=== PATIENT | female | born 1990 | race Hispanic/Latino ===

== ENCOUNTER 2018-07-19 18:16 | Emergency (ER) | payer OTHER ==
[2018-07-19 20:11] LABS: Urine Blood NEGATIVE (NEG); Urine Glucose NEGATIVE (NEG); Urine Protein NEGATIVE (NEG); Urine pH 5.5 (5.0-7.0)
[2018-07-19 20:23] LABS: Urine Bacteria 20-50 /HPF (<20); Urine Culture Reflex Order REFLEXED; Urine RBC NONE SEEN /HPF (NONE SEEN)
--- NOTE | 2018-07-19 20:25 | EDPHYS ---
Physician Documentation [facility] Name: Belinda Restrepo Age: 27 yrs Sex: Female : 1990 Arrival Date: 07/19/2018 Time: 18:19 Bed 13 Private MD: ED Physician Supa Deras HPI: 07/19 19:34 This 27 yrs old Female presents to ER via Ambulatory with complaints of Abdominal Pain, kb Vaginal Discharge. 19:34 The patient presents with pelvic pain, vaginal discharge, that is green discharge. kb Onset: The symptoms/episode began/occurred 4 day(s) ago. Modifying factors: The symptoms are alleviated by nothing, the symptoms are aggravated by nothing. Associated signs and symptoms: Pertinent positives: vaginal discharge, Pertinent negatives: constipation, cramping, diarrhea, dyspareunia, dysuria, fever, hematuria, nausea, urinary frequency, vaginal bleeding, vomiting. Severity of symptoms: At their worst the symptoms were moderate, in the emergency department the symptoms are unchanged. The patient is sexually active, reportedly has a single partner, does not use protection during intercourse. The patient's method of control includes nothing. The patient has not experienced similar symptoms in the past. The patient has not recently seen a physician. Pt reports vaginal discharge that started 4 days ago. States it started off white and turned a light green. Called [facility] and had a prescription called in because she is from out of town. STarted Flagyl and symptoms have gotten worse. States discharge is heavier and more green. [facility] [employer]: 18:29 LMP 06/13/2018 aj Historical: - Allergies: 18:29 No Known Allergies; aj - Immunization history:: Adult Immunizations up to date. - Social history:: Smoking status: Patient/guardian denies using tobacco. - Ebola Screening: : No symptoms or risks identified at this time. ROS: 19:11 Constitutional: Negative for fever, chills, and weight loss, Cardiovascular: Negative kb for chest pain, palpitations, and edema, Respiratory: Negative for shortness of breath, cough, wheezing, and pleuritic chest pain, Back: Negative for injury and pain, MS/Extremity: Negative for injury and deformity, Skin: Negative for injury, rash, and discoloration, Neuro: Negative for headache, weakness, numbness, tingling, and seizure. 19:11 : Positive for pelvic pain, vaginal discharge. Exam: 19:15 Constitutional: This is a well developed, well nourished patient who is awake, alert, kb and in no acute distress. Head/Face: Normocephalic, atraumatic. ENT: Nares patent. No nasal discharge, no septal abnormalities noted. Tympanic membranes are normal and external auditory canals are clear. Oropharynx with no redness, swelling, or masses, exudates, or evidence of obstruction, uvula midline. Mucous membranes moist. Neck: Trachea midline, no thyromegaly or masses palpated, and no cervical lymphadenopathy. Supple, full range of motion without nuchal rigidity, or vertebral point tenderness. No Meningismus. Chest/axilla: Normal chest wall appearance and motion. Nontender with no deformity. No lesions are appreciated. Cardiovascular: Regular rate and rhythm with a normal S1 and S2. No gallops, murmurs, or rubs. Normal PMI, no JVD. No pulse deficits. Respiratory: Lungs have equal breath sounds bilaterally, clear to auscultation and percussion. No rales, rhonchi or wheezes noted. No increased work of breathing, no retractions or nasal flaring. 20:01 : Pelvic Exam: External exam: is normal, Speculum exam: no bleeding is noted, no kb cervicitis, os that is closed, no tissue in cervix is seen, bimanual exam reveals normal findings, no cervical motion tenderness, os that is closed, discharge, green, thick, the nurse was present for the exam. Vital Signs: 18:29 BP 138 / 88; Pulse 94; Resp 18; Temp 97.9; Pulse Ox 100% on R/A; Weight 79.38 kg; aj Height 5 ft. 5 in. (165.10 cm); 19:45 BP 102 / 75; Pulse 89; Resp 18; Temp 97.8; Pulse Ox 99% ; ea 20:40 BP 110 / 65; Pulse 80; Resp 18; Temp 98; Pulse Ox 98% ; ea 18:29 Body Mass Index 29.12 (79.38 kg, 165.10 cm) aj MDM: 18:33 Patient medically screened. kb 19:11 Data reviewed: vital signs, nurses notes. Data interpreted: Pulse oximetry: on room air kb is 100 %. Interpretation: normal. 20:23 Counseling: I had a detailed discussion with the patient and/or guardian regarding: the kb historical points, exam findings, and any diagnostic results supporting the discharge/admit diagnosis, lab results, the need for outpatient follow up, a family practitioner, to return to the emergency department if symptoms worsen or persist or if there are any questions or concerns that arise at home. 07/19 19:04 Order name: Urine Microscopic Only 07/19 19:04 Order name: Wet Prep; Complete Time: 20:22 kb 07/19 19:04 Order name: GC (GONORR/CHLAMYDIA) Probe 07/19 19:05 Order name: Urine Microscopic Only; Complete Time: 20:23 EDMS 07/19 19:37 Order name: Urine Dipstick--Ancillary (enter results); Complete Time: 20:15 mw2 07/19 19:37 Order name: Urine --Ancillary (enter results); Complete Time: 20:15 mw2 07/19 19:04 Order name: Urine Test (obtain specimen); Complete Time: 19:20 kb 07/19 19:04 Order name: Urine Dipstick-Ancillary (obtain specimen); Complete Time: 19:20 kb 07/19 20:25 Order name: Urine Culture EDWV Administered Medications: 20:35 Drug: Rocephin (cefTRIAXone) 250 mg Route: IM; Site: left gluteus; ea 20:50 Follow up: Response: No adverse reaction ea 20:37 Drug: DiFLUcan 150 mg Route: PO; ea 20:50 Follow up: Response: No adverse reaction ea 20:37 Drug: Zithromax 1 grams Route: PO; ea 20:50 Follow up: Response: No adverse reaction ea Disposition: 07/19/18 20:24 Discharged to Home. Impression: Urinary tract infection, site not specified, Candidiasis of vulva and vagina. - Condition is Stable. - Discharge Instructions: Vaginal Yeast Infection, Adult, Urinary Tract Infection, Adult, [id number]. - Prescriptions for Macrobid 100 mg Oral Capsule - take 1 capsule by ORAL route every 12 hours for 7 days; 14 capsule. - Medication Reconciliation Form, Thank You Letter, Antibiotic Education, Prescription Opioid Use form. - Follow up: Emergency Department; When: As needed; Reason: Worsening of condition. Follow up: Private Physician; When: 2 - 3 days; Reason: Recheck today's complaints, Continuance of care, Re-evaluation by your physician. Addendum: 07/26/2018 12:39 Co-signature as Attending Physician, Supa Deras MD I agree with the assessment and c caballero plan of care. Signatures: Dispatcher [employer] EDDoretha Gannon, E BUSINESS SPECIALIST-C E BUSINESS SPECIALIST-Luz Maria Grossman, RN Supa Johnson MD MD cha Antunez, Elena RN WILLIAM grande Corrections: (The following items were deleted from the chart) 07/19 20:52 20:24 07/19/2018 20:24 Discharged to Home. Impression: Urinary tract infection, site ea not specified; Candidiasis of vulva and vagina. Condition is Stable. Forms are Medication Reconciliation Form, Thank You Letter, Antibiotic Education, Prescription Opioid Use. Follow up: Emergency Department; When: As needed; Reason: Worsening of condition. Follow up: Private Physician; When: 2 - 3 days; Reason: Recheck today's complaints, Continuance of care, Re-evaluation by your physician. kb
--- NOTE | 2018-07-19 20:25 | ER ---
Nurse's Notes [facility] Name: Belinda Restrepo Age: 27 yrs Sex: Female : 1990 Arrival Date: 07/19/2018 Time: 18:19 Bed 13 Private MD: Diagnosis: Urinary tract infection, site not specified;Candidiasis of vulva and vagina Presentation: 07/19 18:27 Presenting complaint: Patient states: Report green thick discharge and pelvic pain. aj Transition of care: patient was not received from another setting of care. Onset of symptoms was July 16, 2018. Care prior to arrival: None. 18:27 Method Of Arrival: Ambulatory aj 18:27 Acuity: JULIO 3 aj 19:26 Risk Assessment: Do you want to hurt yourself or someone else? Patient reports no ea desire to harm self or others. Initial Sepsis Screen: Does the patient meet any 2 criteria? No. Patient's initial sepsis screen is negative. Does the patient have a suspected source of infection? No. Patient's initial sepsis screen is negative. Triage Assessment: 18:29 General: Appears in no apparent distress. comfortable, Behavior is calm, cooperative, aj appropriate for age. Pain: Complains of pain in pelvis. Neuro: Level of Consciousness is awake, alert, obeys commands, Oriented to person, place, time, situation, Appropriate for age. Respiratory: Airway is patent Respiratory effort is even, unlabored, Respiratory pattern is regular, symmetrical. GI: No signs and/or symptoms were reported involving the gastrointestinal system. : Reports discharge, green, vaginal itching. 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 - Social history:: Smoking status: Patient/guardian denies using tobacco. - Ebola Screening: : No symptoms or risks identified at this time. Screenin:27 Abuse screen: Denies threats or abuse. Nutritional screening: No deficits noted. ea Tuberculosis screening: No symptoms or risk factors identified. Fall Risk None identified. Assessment: 19:26 General: Appears in no apparent distress. Behavior is calm, cooperative, appropriate ea for age. Pain: Complains of pain in pelvis. Neuro: Level of Consciousness is awake, alert, obeys commands, Oriented to person, place, time, situation. Cardiovascular: Patient's skin is warm and dry. Respiratory: Airway is patent Respiratory effort is even, unlabored, Respiratory pattern is regular, symmetrical. GI: Bowel sounds present X 4 quads. Abd is soft and non tender X 4 quads. GI:. : Reports vaginal itching. Derm: Skin is pink, warm \T\ dry. 20:49 Reassessment: Patient and/or family updated on plan of care and expected duration. Pain ea level reassessed. Patient is alert, oriented x 3, equal unlabored respirations, skin warm/dry/pink. Discharge instruction given to patient, verbalized the understanding of instruction. No s/s of pain or discomfort noted at this time. Vital Signs: 18:29 BP 138 / 88; Pulse 94; Resp 18; Temp 97.9; Pulse Ox 100% on R/A; Weight 79.38 kg; aj Height 5 ft. 5 in. (165.10 cm); 19:45 BP 102 / 75; Pulse 89; Resp 18; Temp 97.8; Pulse Ox 99% ; ea 20:40 BP 110 / 65; Pulse 80; Resp 18; Temp 98; Pulse Ox 98% ; ea 18:29 Body Mass Index 29.12 (79.38 kg, 165.10 cm) aj ED Course: 18:19 Patient arrived in ED. tw3 18:28 Triage completed. aj 18:29 Arm band placed on left wrist. Patient placed in waiting room. aj 18:33 [facility]C [facility] kb 18:33 Supa Deras MD is Attending Physician. kb 19:20 Kerri Perales RN is Primary Nurse. ea 19:28 Patient has correct armband on for positive identification. Placed in gown. Bed in low ea position. Call light in reach. Side rails up X 1. 20:00 Assist provider with pelvic exam: Set up pelvic tray. Performed by Doretha RYAN Specimens sent to lab. Patient tolerated well. 20:52 Patient did not have IV access during this emergency room visit. ea Administered Medications: 20:35 Drug: Rocephin (cefTRIAXone) 250 mg Route: IM; Site: left gluteus; ea 20:50 Follow up: Response: No adverse reaction ea 20:37 Drug: DiFLUcan 150 mg Route: PO; ea 20:50 Follow up: Response: No adverse reaction ea 20:37 Drug: Zithromax 1 grams Route: PO; ea 20:50 Follow up: Response: No adverse reaction ea Outcome: 20:24 Discharge ordered by . maria esther 20:51 Discharged to home ambulatory. ea 20:51 Condition: improved 20:51 Discharge instructions given to patient, Instructed on discharge instructions, follow up and referral plans. medication usage, Demonstrated understanding of instructions, follow-up care, medications, Prescriptions given X 1. 20:52 Patient left the ED. ea Addendum: 07/22/2018 14:38 Addendum: Culture Results: Positive urine culture. Bacteria is resistant to, has s s intermediate sensitivity, or is not tested against prescribed antibiotics. Report given to BRANDIE for further evaluation and then to sewing pattern layout technician for follow up with patient. Phone call Attempt #1 no answer left Certified letter sent to listed address for patient. Signatures: Doretha Martinez, DIRECTOR CUSTOM-C DIRECTOR CUSTOM-Ckb Luz Maria Hicks, RN Marychuy Mao RN RN ss Wade, Tia 3 Kerri Perales RN RN ea
[2018-07-19] MEDS ORDERED: AZITHROMYCIN 250 MG TAB ONE (20:44)
[2018-07-19] MEDS ORDERED: FLUCONAZOLE 100 MG TAB ONE (20:44)
[2018-07-19] MEDS ORDERED: CEFTRIAXONE 250 MG/VIAL ONE (20:44)
[2018-07-23 23:01] LABS: C.trachomatis RNA,TMA Not Detected (Not Detected)
== END 2018-07-19 20:52 | disposition home or self-care (01) ==
LOC: ER 18:16
DX: N39.0 Urinary tract infection, site not specified (principal); B37.3 Candidiasis of vulva and vagina
CPT/HCPCS: 81003; 81015; 81025; 87077; 87086; 87088; 87186; 87210; 87490; 87590; 96372; 99284; J0696

== ENCOUNTER 2018-11-14 22:47 | Emergency (ER) | payer OTHER, SELFPAY ==
[2018-11-15] MEDS ORDERED: KETOROLAC 30 MG/ML INJ ONE (00:14)
--- NOTE | 2018-11-15 00:26 | ER ---
Nurse's Notes [facility] Name: Belinda Restrepo Age: 27 yrs Sex: Female : 1990 Arrival Date: 11/14/2018 Time: 22:49 Bed 18 Private MD: Diagnosis: Zoster [herpes zoster] Presentation: 11/14 23:30 Presenting complaint: Patient states: Rash to right lateral side of abdomen for about a lp1 week and a half; "It itches a lot and it bernal really bad, I had to leave work because I was so uncomfortable". 23:30 Method Of Arrival: Ambulatory lp1 23:30 Transition of care: patient was not received from another setting of care. Onset of lp1 symptoms was November 14, 2018. Risk Assessment: Do you want to hurt yourself or someone else? Patient reports no desire to harm self or others. Initial Sepsis Screen: Does the patient meet any 2 criteria? No. Patient's initial sepsis screen is negative. Does the patient have a suspected source of infection? No. Patient's initial sepsis screen is negative. Care prior to arrival: None. 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 - Social history:: Smoking status: Patient/guardian denies using tobacco. - Ebola Screening: : No symptoms or risks identified at this time. Screenin:47 Abuse screen: Denies threats or abuse. Denies injuries from another. Nutritional lp1 screening: No deficits noted. Tuberculosis screening: No symptoms or risk factors identified. Fall Risk None identified. Assessment: 23:47 General: Appears in no apparent distress. Behavior is appropriate for age. Pain: lp1 Complains of pain in anterior aspect of right lateral abdomen Pain currently is 9 out of 10 on a pain scale. Quality of pain is described as burning. Neuro: No deficits noted. Cardiovascular: No deficits noted. Respiratory: No deficits noted. GI: No deficits noted. : No deficits noted. EENT: No deficits noted. Derm: Rash noted that is itchy, papular, red, raised, on anterior aspect of right lateral abdomen. Musculoskeletal: No deficits noted. Vital Signs: 23:30 BP 127 / 94; Pulse 92; Resp 16; Temp 99.1(O); Pulse Ox 97% on R/A; Weight 79.38 kg (R); lp1 Height 5 ft. 5 in. (165.10 cm); Pain 9/10; 23:30 Body Mass Index 29.12 (79.38 kg, 165.10 cm) lp1 ED Course: 22:49 Patient arrived in ED. ds1 23:43 Hayde Hernandez, RN is Primary Nurse. lp1 23:46 Triage completed. lp1 23:46 Arm band placed on. lp1 23:47 Patient has correct armband on for positive identification. lp1 23:48 Ned Sánchez MD is Attending Physician. tw4 11/15 00:21 No provider procedures requiring assistance completed. Patient did not have IV access lp1 during this emergency room visit. Administered Medications: 00:21 Drug: TORadol 60 mg Route: IM; Site: right gluteus; lp1 00:46 Follow up: Response: No adverse reaction; Pain is decreased lp1 Outcome: 00:25 Discharge ordered by . tw4 00:46 Discharged to home ambulatory. lp1 00:46 Condition: good 00:46 Discharge instructions given to patient, Instructed on discharge instructions, follow up and referral plans. medication usage, Demonstrated understanding of instructions, follow-up care, medications, Prescriptions given X 3. 00:46 Patient left the ED. lp1 Signatures: Lina Bullock ds1 Hayde Hernandez, RN RN lp1 Ned Sánchez MD MD tw4
[2018-11-15 01:45] VITALS: BP 127/94; TEMP 99.1; O2SAT 97
--- NOTE | 2018-11-16 01:01 | EDPHYS ---
Physician Documentation [facility] Name: Belinda Restrepo Age: 27 yrs Sex: Female : 1990 Arrival Date: 11/14/2018 Time: 22:49 Bed 18 Private MD: ED Physician Ned Sánchez HPI: 11/15 01:31 This 27 yrs old Female presents to ER via Ambulatory with complaints of Rash. tw4 01:31 The patient's rash thought to be caused by an unknown cause. The rash is located on the tw4 posterior aspect of right lateral abdomen, anterior aspect of right lateral abdomen and right lower quadrant. The rash can be described as vesicular. Onset: The symptoms/episode began/occurred 1 week(s) ago. Associated signs and symptoms: Pertinent negatives:. Severity of symptoms: At their worst the symptoms were moderate. The patient has not experienced similar symptoms in the past. 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 - Social history:: Smoking status: Patient/guardian denies using tobacco. - Ebola Screening: : No symptoms or risks identified at this time. ROS: 11/15 01:31 Constitutional: Negative for fever, chills, and weight loss, Eyes: Negative for injury, tw4 pain, redness, and discharge, ENT: Negative for injury, pain, and discharge, Cardiovascular: Negative for chest pain, palpitations, and edema, Respiratory: Negative for shortness of breath, cough, wheezing, and pleuritic chest pain, Abdomen/GI: Negative for abdominal pain, nausea, vomiting, diarrhea, and constipation, Back: Negative for injury and pain, MS/Extremity: Negative for injury and deformity, Neuro: Negative for headache, weakness, numbness, tingling, and seizure. Skin: Positive for rash. Exam: 01:31 Constitutional: This is a well developed, well nourished patient who is awake, alert, tw4 and in no acute distress. Head/Face: Normocephalic, atraumatic. Chest/axilla: Normal chest wall appearance and motion. Nontender with no deformity. No lesions are appreciated. Cardiovascular: Regular rate and rhythm with a normal S1 and S2. No gallops, murmurs, or rubs. Normal PMI, no JVD. No pulse deficits. Respiratory: Lungs have equal breath sounds bilaterally, clear to auscultation and percussion. No rales, rhonchi or wheezes noted. No increased work of breathing, no retractions or nasal flaring. Abdomen/GI: Soft, non-tender, with normal bowel sounds. No distension or tympany. No guarding or rebound. No evidence of tenderness throughout. MS/ Extremity: Pulses equal, no cyanosis. Neurovascular intact. Full, normal range of motion. Neuro: Awake and alert, GCS 15, oriented to person, place, time, and situation. Cranial nerves II-XII grossly intact. Motor strength 5/5 in all extremities. Sensory grossly intact. Cerebellar exam normal. Normal gait. 01:31 Skin: consistent with zoster, on the posterior aspect of right lateral abdomen, anterior aspect of right lateral abdomen and right lower quadrant. Vital Signs: 11/14 23:30 BP 127 / 94; Pulse 92; Resp 16; Temp 99.1(O); Pulse Ox 97% on R/A; Weight 79.38 kg (R); lp1 Height 5 ft. 5 in. (165.10 cm); Pain 9/10; 23:30 Body Mass Index 29.12 (79.38 kg, 165.10 cm) lp1 MDM: 23:48 Patient medically screened. tw4 Administered Medications: 11/15 00:21 Drug: TORadol 60 mg Route: IM; Site: right gluteus; lp1 00:46 Follow up: Response: No adverse reaction; Pain is decreased lp1 Disposition: 01:34 Chart complete. tw4 Disposition: 11/15/18 00:25 Discharged to Home. Impression: Zoster [herpes zoster]. - Condition is Stable. - Discharge Instructions: Shingles. - Prescriptions for Ibuprofen 800 mg Oral Tablet - take 1 tablet by ORAL route every 8 hours As needed take with food; 30 tablet. Tylenol- Codeine #3 300-30 mg Oral Tablet - take 2 tablet by ORAL route every 6 hours As needed; 6 tablet. Valtrex 1 g Oral Tablet - take 1 tablet by ORAL route every 8 hours for 1 day; 30 tablet. - Work release form, Medication Reconciliation Form, Thank You Letter, Antibiotic Education, Prescription Opioid Use form. - Follow up: Private Physician; When: Upon discharge from the Emergency Department; Reason: If symptoms return, Recheck today's complaints, Continuance of care. - Problem is new. - Symptoms have improved. Signatures: Hayde Hernandez RN RN lp1 Ned Sánchez MD MD tw4 Corrections: (The following items were deleted from the chart) 00:46 00:25 11/15/2018 00:25 Discharged to Home. Impression: Zoster [herpes zoster]. lp1 Condition is Stable. Forms are Work release form, Medication Reconciliation Form, Thank You Letter, Antibiotic Education, Prescription Opioid Use. Follow up: Private Physician; When: Upon discharge from the Emergency Department; Reason: If symptoms return, Recheck today's complaints, Continuance of care. Problem is new. Symptoms have improved. tw4
== END 2018-11-15 00:46 | disposition home or self-care (01) ==
LOC: ER 22:47
DX: B02.9 Zoster without complications (principal)
CPT/HCPCS: 96372; 99283

== ENCOUNTER 2019-01-12 14:52 | Emergency (ER) | payer SELFPAY ==
--- OUTSIDE RECORDS SUMMARY | 2019-01-12 14:55 | XMS REPORT ---
:1990 [facility] Address [address] [place] [address] Care Team Providers Name Role Phone Unavailable Unavailable Unavailable Payers Payer Name Policy Type Policy Number Effective Date Expiration Date Problems This patient has no known problems. Allergies, Adverse Reactions, Alerts Allergy Allergy Status Severity Reaction(s) Onset Inactive Treating Comments Name Type Date Date Clinician No Known DA Active U 2015-01 Allergies -24 00:00:0 0 Medications This patient has no known medications.
[2019-01-12] MEDS ORDERED: NA CHLORIDE 0.9% 500 ML ONE (15:30)
[2019-01-12 15:48] LABS: Absolute Lymphocytes (CBC) 2.3 K/uL (0.7-4.9); Basophils % 0.5 % (0-1.3); Hematocrit 41.5 % (36.0-45.0); Lymphocytes % 34.4 % (15.3-44.8); RBC Red Blood Cell Count 4.55 M/uL (3.86-4.86)
[2019-01-12 16:11] LABS: Urine Blood TRACE (NEG); Urine Glucose NEGATIVE (NEG); Urine Protein NEGATIVE (NEG); Urine Specific Gravity 1.015 (1.005-1.030)
[2019-01-12 16:18] LABS: ALT/SGPT 32 U/L (12-78); AST/SGOT 14 U/L (15-37); Alkaline Phosphatase 64 U/L (45-117); BUN Blood Urea Nitrogen 9 mg/dL (7-18); Bicarbonate 29 mmol/L (21-32); Bilirubin Total 0.8 mg/dL (0.2-1.0); Glucose Level 135 mg/dL (74-106); Potassium 3.5 mmol/L (3.5-5.1); Protein, Total 7.2 g/dL (6.4-8.2); Sodium Level 140 mmol/L (136-145); Troponin (Emerg Dept Use Only) < 0.02 ng/mL (0.0-0.045)
--- NOTE | 2019-01-12 16:50 | ER ---
Nurse's Notes [facility] Name: Belinda Restrepo Age: 28 yrs Sex: Female : 1990 Arrival Date: 01/12/2019 Time: 14:55 Bed 6 Private MD: Diagnosis: Other chest pain;Obstructive sleep apnea (adult) (pediatric);Fatigue Presentation: 01/12 15:00 Presenting complaint: Chest pressure and SOB that woke her from sleep at 0230 today. hb Also c/o nausea. Pain does not radiate. Denies cough/fever. Transition of care: patient was not received from another setting of care. Onset of symptoms was January 12, 2019 at 02:30. Risk Assessment: Do you want to hurt yourself or someone else? Patient reports no desire to harm self or others. Care prior to arrival: None. 15:00 Method Of Arrival: Ambulatory hb 15:00 Acuity: JULIO 3 hb 15:19 Initial Sepsis Screen: Does the patient meet any 2 criteria? No. Patient's initial jl7 sepsis screen is negative. Does the patient have a suspected source of infection? No. Patient's initial sepsis screen is negative. 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 - Social history:: Smoking status: Patient/guardian denies using tobacco. - Ebola Screening: : No symptoms or risks identified at this time. Screenin:11 Abuse screen: Denies threats or abuse. Denies injuries from another. Nutritional jl7 screening: No deficits noted. Tuberculosis screening: No symptoms or risk factors identified. Fall Risk IV access (20 points). Total Jett Fall Scale indicates No Risk (0-24 pts). Assessment: 15:11 General: Appears in no apparent distress. uncomfortable. Pain: Complains of pain in jl7 anterior aspect of left upper chest Pain does not radiate. Pain currently is 6 out of 10 on a pain scale. Quality of pain is described as pressure, Pain began suddenly, at 0230 this morning Is continuous. Neuro: Level of Consciousness is awake, alert, obeys commands, Oriented to person, place, time, situation. Cardiovascular: Heart tones S1 S2 present Patient's skin is warm and dry. Respiratory: Airway is patent Respiratory effort is even, unlabored, Respiratory pattern is regular, symmetrical, Breath sounds are clear bilaterally. GI: Reports nausea. : No signs and/or symptoms were reported regarding the genitourinary system. EENT: No signs and/or symptoms were reported regarding the EENT system. Derm: Skin is pink, warm \T\ dry. Musculoskeletal: No signs and/or symptoms reported regarding the musculoskeletal system. 16:15 Reassessment: Patient appears in no apparent distress at this time. No changes from jl7 previously documented assessment. Patient and/or family updated on plan of care and expected duration. Pain level reassessed. Patient is alert, oriented x 3, equal unlabored respirations, skin warm/dry/pink. Vital Signs: 15:01 BP 146 / 105; Pulse 108; Resp 16; Temp 97.7; Pulse Ox 99% on R/A; Weight 79.38 kg; hb Height 5 ft. 5 in. (165.10 cm); Pain 2/10; 15:11 BP 129 / 94; Pulse 104; Resp 16 S; Pulse Ox 98% on R/A; Pain 6/10; jl7 16:20 BP 102 / 68; Pulse 82; Resp 18; Temp 98.9(TE); Pulse Ox 100% on R/A; mh5 15:01 Body Mass Index 29.12 (79.38 kg, 165.10 cm) ED Course: 14:55 Patient arrived in ED. mr 15:01 Triage completed. hb 15:01 Arm band placed on. hb 15:04 Alejandra Lemus, WILLIAM is Primary Nurse. jl7 15:10 Eun Serrano FNP-C is PHCP. snw 15:10 Jaime Santos MD is Attending Physician. snw 15:11 Patient maintains SpO2 saturation greater than 95% on room air. jl7 15:12 Initial lab(s) drawn, by me, sent to lab. Inserted saline lock: 20 gauge in right mh5 antecubital area, using aseptic technique. Blood collected. 15:13 Patient has correct armband on for positive identification. Placed in gown. Bed in low mh5 position. Call light in reach. Side rails up X 1. Warm blanket given. hospital monitor on. Pulse ox on. NIBP on. 15:22 EKG done, by pharmacist technician. reviewed by Jaime Santos MD. 5 15:33 EKG done, by pharmacist technician. reviewed by Jaime Santos MD. at1 17:09 No provider procedures requiring assistance completed. IV discontinued, intact, jl7 bleeding controlled, No redness/swelling at site. Pressure dressing applied. Administered Medications: 15:42 Drug: NS 0.9% 500 ml Route: IV; Rate: bolus; Site: right antecubital; jl7 16:15 Follow up: Response: No adverse reaction; IV Status: Completed infusion jl7 Outcome: 16:49 Discharge ordered by . ps1 17:09 Discharged to home ambulatory. jl7 17:09 Condition: stable 17:09 Discharge instructions given to patient, family, Instructed on discharge instructions, follow up and referral plans. Demonstrated understanding of instructions, follow-up care. 17:10 Patient left the ED. jl7 Signatures: Eun Serrano, DIRECTOR OF SECURITY-C DIRECTOR OF SECURITY-Csnw Opal Mendoza Luz Maria Hernandez, corrections nurse EKG Tat1 Lazara Zepeda, Aurea Torres RN [facility] Alejandra Lemus RN RN jl7 Jaime Santos MD MD ps1
--- NOTE | 2019-01-12 16:50 | EDPHYS ---
Physician Documentation [facility] Name: Belinda Restrepo Age: 28 yrs Sex: Female : 1990 Arrival Date: 01/12/2019 Time: 14:55 Bed 6 Private MD: ED Physician Jaime Santos HPI: 01/12 16:44 This 28 yrs old Female presents to ER via Ambulatory with complaints of Chest ps1 Pain. 16:44 patient states that she has had chest pain for last couple of days. States that she has ps1 been tired and not feeling well. She has not been coughing but states that she was snoring loudly and her woke her up and then she felt chills and had an episode of emesis. She states that her chest pain became worse then and localized to left chest. . 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 - Social history:: Smoking status: Patient/guardian denies using tobacco. - Ebola Screening: : No symptoms or risks identified at this time. ROS: 16:44 Eyes: Negative for injury, pain, redness, and discharge, ENT: Negative for injury, ps1 pain, and discharge, Respiratory: Negative for shortness of breath, cough, wheezing, and pleuritic chest pain. 16:44 MS/Extremity: Negative for injury and deformity, Skin: Negative for injury, rash, and discoloration, Neuro: Negative for headache, weakness, numbness, tingling, and seizure. 16:44 Constitutional: Positive for fatigue, malaise. 16:44 Cardiovascular: Positive for chest pain. 16:44 Abdomen/GI: Positive for nausea and vomiting. Exam: 16:44 Constitutional: This is a well developed, well nourished patient who is awake, alert, ps1 and in no acute distress. Head/Face: Normocephalic, atraumatic. Eyes: Pupils equal round and reactive to light, extra-ocular motions intact. Lids and lashes normal. Conjunctiva and sclera are non-icteric and not injected. Chest/axilla: Normal chest wall appearance and motion. Nontender with no deformity. No lesions are appreciated. Cardiovascular: Regular rate and rhythm. No gallops, murmurs, or rubs. Normal PMI, no JVD. No pulse deficits. Respiratory: Lungs have equal breath sounds bilaterally, clear to auscultation and percussion. No rales, rhonchi or wheezes noted. No increased work of breathing, no retractions or nasal flaring. Abdomen/GI: Soft, non-tender, with normal bowel sounds. No distension or tympany. No guarding or rebound. No evidence of tenderness throughout. Skin: Warm, dry with normal turgor. Normal color with no rashes, no lesions, and no evidence of cellulitis. MS/ Extremity: Pulses equal, no cyanosis. Neurovascular intact. Full, normal range of motion. Neuro: Awake and alert, GCS 15, oriented to person, place, time, and situation. Cranial nerves II-XII grossly intact. Sensory grossly intact. Psych: Awake, alert, with orientation to person, place and time. Behavior, mood, and affect are within normal limits. Vital Signs: 15:01 BP 146 / 105; Pulse 108; Resp 16; Temp 97.7; Pulse Ox 99% on R/A; Weight 79.38 kg; hb Height 5 ft. 5 in. (165.10 cm); Pain 2/10; 15:11 BP 129 / 94; Pulse 104; Resp 16 S; Pulse Ox 98% on R/A; Pain 6/10; jl7 16:20 BP 102 / 68; Pulse 82; Resp 18; Temp 98.9(TE); Pulse Ox 100% on R/A; mh5 15:01 Body Mass Index 29.12 (79.38 kg, 165.10 cm) hb MDM: 15:10 Patient medically screened. ps1 16:44 Differential diagnosis: anxiety, chest wall pain, esophagitis, PE, and others. HEART ps1 Score: History: Slightly Suspicious (0), ECG: Normal (0), Age: < or = 45 years (0), Risk Factors: No Risk Factors Known (0), Troponin: < or = 1 x Normal Limit (0), Total Score = 0. Data reviewed: vital signs, nurses notes. 01/12 15:25 Order name: CBC with Diff; Complete Time: 16:33 ps1 12 15:25 Order name: CMP; Complete Time: 16:33 ps1 01/12 15:25 Order name: DD; Complete Time: 16:33 ps1 01/12 15:25 Order name: Troponin (emerg Dept Use Only); Complete Time: 16:33 ps1 01/12 15:25 Order name: Flu; Complete Time: 16:50 ps1 01/12 15:43 Order name: Urine Dipstick--Ancillary (enter results); Complete Time: 16:33 bd 01/12 15:25 Order name: Urine Dipstick-Ancillary (obtain specimen); Complete Time: 16:24 ps1 01/12 15:43 Order name: Urine --Ancillary (enter results); Complete Time: 16:33 bd 01/12 15:56 Order name: EKG Electrocardiogram; Complete Time: 16:25 EDMS Administered Medications: 15:42 Drug: NS 0.9% 500 ml Route: IV; Rate: bolus; Site: right antecubital; [facility] 16:15 Follow up: Response: No adverse reaction; IV Status: Completed infusion jl7 Disposition: 01/12/19 16:49 Discharged to Home. Impression: Other chest pain, Obstructive sleep apnea (adult) (pediatric), Fatigue. - Condition is Stable. - Discharge Instructions: Nonspecific Chest Pain. - Work release form, Medication Reconciliation Form, Thank You Letter, Antibiotic Education, Prescription Opioid Use form. - Follow up: Private Physician; When: As needed; Reason: Further diagnostic work-up, Recheck today's complaints, Continuance of care, Re-evaluation by your physician. Follow up: Emergency Department; When: As needed; Reason: Fever > 102 F, Trouble breathing, Worsening of condition. - Problem is new. - Symptoms have improved. Signatures: Dispatcher [employer] EDMS Lazara Zepeda RN RN hb Leal, Jahala, RN RN jl7 Jaime Santos MD MD ps1 Corrections: (The following items were deleted from the chart) 17:10 16:49 01/12/2019 16:49 Discharged to Home. Impression: Other chest pain; Obstructive jl7 sleep apnea (adult) (pediatric); Fatigue. Condition is Stable. Forms are Medication Reconciliation Form, Thank You Letter, Antibiotic Education, Prescription Opioid Use. Follow up: Private Physician; When: As needed; Reason: Further diagnostic work-up, Recheck today's complaints, Continuance of care, Re-evaluation by your physician. Follow up: Emergency Department; When: As needed; Reason: Fever > 102 F, Trouble breathing, Worsening of condition. Problem is new. Symptoms have improved. ps1
--- NOTE | 2019-01-12 17:41 | EKG ---
Test Date: 2019-01-12 Test Time: 15:11:36 Reading Teacher: CAITLIN MEASUREMENT RESULTS: Intervals: Rate: 100 MO: 122 QRSD: 86 QT: 348 QTc: 448 [place]: P: 55 MO: 122 QRS: 48 T: 18 INTERPRETIVE STATEMENTS: Normal sinus rhythm Cannot rule out Anterior infarct, age undetermined Abnormal ECG No previous ECG available for comparison Electronically Signed On 01-12-19 17:40:58 PIN BALL MACHINE MECHANIC by Missael Piedra
[2019-01-12 18:19] VITALS: BP 102/68; TEMP 98.9; O2SAT 100
== END 2019-01-12 17:10 | disposition home or self-care (01) ==
LOC: ER 14:52
DX: R07.89 Other chest pain (principal); G47.33 Obstructive sleep apnea (adult) (pediatric); R53.1 Weakness
CPT/HCPCS: 36415; 80053; 81003; 81025; 84484; 85025; 85379; 87804; 93005; 96360; 99285; J7040

== ENCOUNTER 2019-07-28 08:58 | Emergency (ER) | payer OTHER, SELFPAY ==
[2019-07-28 10:20] LABS: Urine Blood 3+ (NEG); Urine Glucose NEGATIVE (NEG); Urine Protein 1+ (NEG); Urine Specific Gravity 1.025 (1.005-1.030); Urine pH 5.5 (5.0-7.0)
[2019-07-28 10:28] LABS: Urine Bacteria 20-50 /HPF (<20); Urine Culture Reflex Order REFLEXED
--- NOTE | 2019-07-28 10:33 | EDPHYS ---
Physician Documentation [facility] Name: Belinda Restrepo Age: 28 yrs Sex: Female : 1990 Arrival Date: 07/28/2019 Time: 09:01 Bed 17 Private MD: ED Physician Miles Martinez HPI: 07/27 10:00 This 28 yrs old Female presents to ER via Ambulatory with complaints of cp Vaginal Discharge. 10:00 The patient presents with urinary symptoms, dysuria, vaginal discharge, that is white cp discharge, patient has similar to previous yeast infections. 10:00 Onset: The symptoms/episode began/occurred 3 day(s) ago. cp 10:00 Associated signs and symptoms: Pertinent negatives: diarrhea, fever, hematuria, vaginal cp bleeding, vomiting. The patient is sexually active, reportedly has a single partner. Patient reports OTC creams not effective in the past for yeast infections and needs oral medication. 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 - Social history:: Smoking status: Patient denies any tobacco usage or history of. ROS: 10:05 Constitutional: Negative for body aches, chills, fever, poor PO intake. cp 10:05 Eyes: Negative for injury, pain, redness, and discharge. cp 10:05 ENT: Negative for ear pain, sore throat. 10:05 Cardiovascular: Negative for chest pain, palpitations. 10:05 Respiratory: Negative for cough, shortness of breath, wheezing. 10:05 Abdomen/GI: Negative for abdominal pain, nausea, vomiting, and diarrhea. 10:05 : Positive for urinary symptoms, vaginal discharge, Negative for pelvic pain, flank pain. 10:05 All other systems are negative. Exam: 10:10 Constitutional: The patient appears in no acute distress, alert, awake, non-toxic, well cp developed, well nourished. 10:10 Head/Face: Normocephalic, atraumatic. cp 10:10 Cardiovascular: Rate: normal. 10:10 Respiratory: the patient does not display signs of respiratory distress, Respirations: normal. 10:10 Abdomen/GI: Exam negative for discomfort, distension, guarding, Inspection: abdomen appears normal. 10:10 : Pelvic Exam: the exam is deferred, patient reports no concern for STD. Vital Signs: 09:25 BP 112 / 76; Pulse 84; Resp 17; Temp 98.7; Pulse Ox 97% ; jl7 MDM: 09:47 Patient medically screened. 10:30 Differential diagnosis: mirta infection, pelvic inflammatory disease, urinary tract cp infection, vaginosis. 10:31 Data reviewed: vital signs, nurses notes, lab test result(s), and as a result, I will cp discharge patient. 10:31 Counseling: I had a detailed discussion with the patient and/or guardian regarding: the cp historical points, exam findings, and any diagnostic results supporting the discharge/admit diagnosis, lab results, to return to the emergency department if symptoms worsen or persist or if there are any questions or concerns that arise at home. 07/27 09:48 Order name: Urine Microscopic Only; Complete Time: 10:31 [facility] 07/27 10:31 Interpretation: Normal except: UWBC 10-20; URBC 5-10; UBACT 20-50; SQEPI 10-20. 07/27 09:56 Order name: Urine Dipstick--Ancillary (enter results); Complete Time: 10:31 07/27 10:31 Interpretation: Normal except: UKET 1+; UBLD 3+; UPROT 1+; U NIT POSITIVE; UESTR TRACE. 07/27 09:48 Order name: Urine Test (obtain specimen); Complete Time: 09:59 [facility] 07/27 09:48 Order name: Urine Dipstick-Ancillary (obtain specimen); Complete Time: 09:59 [facility] 07/27 09:56 Order name: Urine --Ancillary (enter results); Complete Time: 10:31 07/27 10:31 Order name: Urine Culture EDMS Administered Medications: No medications were administered Disposition: 07/28/19 10:32 Discharged to Home. Impression: Urinary tract infection, site not specified, Candidiasis of vulva and vagina. - Condition is Stable. - Discharge Instructions: Urinary Tract Infection, Adult, Vaginal Yeast Infection, Adult. - Prescriptions for Diflucan 150 mg Oral Tablet - take 1 tablet by ORAL route one time As needed take second tablet 2 days later if symptoms continue; 2 tablet. Bactrim DS 800- 160 mg Oral Tablet - take 1 tablet by ORAL route every 12 hours for 7 days; 14 tablet. - Medication Reconciliation Form, Thank You Letter, Antibiotic Education, Prescription Opioid Use form. - Follow up: Private Physician; When: 2 - 3 days; Reason: Worsening of condition. - Problem is new. - Symptoms have improved. Addendum: 07/29/2019 14:51 Co-signature as Attending Physician, Miles Martinez MD I agree with the assessment and k dr plan of care. Signatures: Dispatcher [employer] EDMS Miles Martinez MD MD kdr Supa Keita PA PA cp Alejandra Lemus RN RN jl7 Corrections: (The following items were deleted from the chart) 07/27 10:35 10:32 07/28/2019 10:32 Discharged to Home. Impression: Urinary tract infection, site cp not specified. Condition is Stable. Forms are Medication Reconciliation Form, Thank You Letter, Antibiotic Education, Prescription Opioid Use. Follow up: Private Physician; When: 2 - 3 days; Reason: Worsening of condition. Problem is new. Symptoms have improved. cp 10:43 10:35 07/28/2019 10:32 Discharged to Home. Impression: Urinary tract infection, site jl7 not specified; Candidiasis of vulva and vagina. Condition is Stable. Discharge Instructions: Urinary Tract Infection, Adult, Vaginal Yeast Infection, Adult. Prescriptions for Diflucan 150 mg Oral Tablet - take 1 tablet by ORAL route one time As needed take second tablet 2 days later if symptoms continue; 2 tablet, Bactrim DS 800-160 mg Oral Tablet - take 1 tablet by ORAL route every 12 hours for 7 days; 14 tablet. and Forms are Medication Reconciliation Form, Thank You Letter, Antibiotic Education, Prescription Opioid Use. Follow up: Private Physician; When: 2 - 3 days; Reason: Worsening of condition. Problem is new. Symptoms have improved. cp
--- NOTE | 2019-07-28 10:33 | ER ---
Nurse's Notes [facility] Name: Belinda Restrepo Age: 28 yrs Sex: Female : 1990 Arrival Date: 07/28/2019 Time: 09:01 Bed 17 Private MD: Diagnosis: Urinary tract infection, site not specified;Candidiasis of vulva and vagina Presentation: 07/27 09:25 Chief complaint: Patient states: White vaginal discharge x 3 days, denies odor, reports jl7 mild discomfort with urination. Coronavirus screen: Proceed with normal triage. Ebola Screen: No symptoms or risks identified at this time. Initial Sepsis Screen: Does the patient meet any 2 criteria? No. Patient's initial sepsis screen is negative. Does the patient have a suspected source of infection? No. Patient's initial sepsis screen is negative. Risk Assessment: Do you want to hurt yourself or someone else? Patient reports no desire to harm self or others. Onset of symptoms was July 25, 2019. 09:25 Method Of Arrival: Ambulatory jl7 09:25 Acuity: JULIO 4 jl7 Triage Assessment: 09:25 General: Appears in no apparent distress. uncomfortable, Behavior is calm, cooperative, jl7 appropriate for age. Pain: Denies pain. Neuro: Level of Consciousness is awake, alert, obeys commands, Oriented to person, place, time, situation. Cardiovascular: Patient's skin is warm and dry. Respiratory: Airway is patent Respiratory effort is even, unlabored, Respiratory pattern is regular, symmetrical. GI: Patient currently denies diarrhea, nausea, vomiting. : Reports discharge, from vagina that is white, vaginal itching. Derm: Skin is pink, warm \T\ dry. 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 - Social history:: Smoking status: Patient denies any tobacco usage or history of. Screenin:30 Abuse screen: Denies threats or abuse. Denies injuries from another. Nutritional jl7 screening: No deficits noted. Tuberculosis screening: No symptoms or risk factors identified. Fall Risk None identified. Assessment: 09:30 General: See triage assessment. jl7 Vital Signs: 09:25 BP 112 / 76; Pulse 84; Resp 17; Temp 98.7; Pulse Ox 97% ; jl7 ED Course: 09:01 Patient arrived in ED. as 09:23 Alejandra Lemus, RN is Primary Nurse. jl7 09:24 Supa Keita PA is PHCP. cp 09:24 Miles Martinez MD is Attending Physician. cp 09:25 Arm band placed on right wrist. jl7 09:30 Patient has correct armband on for positive identification. Bed in low position. Call jl7 light in reach. Side rails up X 1. 09:30 No provider procedures requiring assistance completed. Urine collected: clean catch jl7 specimen, cloudy. Patient did not have IV access during this emergency room visit. 09:46 Triage completed. jl7 Administered Medications: No medications were administered Outcome: :30 Discharged to home ambulatory. jl7 09:30 Condition: stable 09:30 Discharge instructions given to patient, Instructed on discharge instructions, follow up and referral plans. medication usage, Demonstrated understanding of instructions, follow-up care, medications, Prescriptions given X 2. 10:32 Discharge ordered by MD. cp 10:43 Patient left the ED. jl7 Addendum: 07/31/2019 07:26 Addendum: Culture Results: Positive urine culture. No further action required. Bacteria s s sensitive to prescribed antibiotic. Signatures: Julissa Craig Shelby, RN RN Supa Keita PA PA cp Alejandra Lemus, WILLIAM THOMAS jl
[2019-07-28 10:50] VITALS: BP 112/76; TEMP 98.7; O2SAT 97
--- OUTSIDE RECORDS SUMMARY | 2019-07-28 11:23 | XMS REPORT | Continuity of Care Document ---
:1990 Author Organization [facility] t Address [address] [place] [address] Care Team Providers Name Role Phone Unavailable Unavailable Unavailable Payers Payer Name Policy Type Policy Number Effective Date Expiration Date S ource Problems This patient has no known problems. Allergies, Adverse Reactions, Alerts Allergy Allergy Status Severity Reaction(s) Onset Inactive Treating Comm ents Source Name Type Date Date Clinician No Known DA Active U 2014-02 [facility] 04-04 [facility] Medications This patient has no known medications. Procedures This patient has no known procedures. Results This patient has no known results.
== END 2019-07-28 10:43 | disposition home or self-care (01) ==
LOC: ER 08:58
DX: N39.0 Urinary tract infection, site not specified (principal); B37.3 Candidiasis of vulva and vagina
CPT/HCPCS: 81003; 81015; 81025; 87077; 87086; 87088; 87186; 99283

== ENCOUNTER 2019-10-08 11:26 | Emergency (ER) | payer OTHER ==
--- OUTSIDE RECORDS SUMMARY | 2019-10-08 11:28 | XMS REPORT | Continuity of Care Document ---
:1990 Author Organization [facility] t Address [address] [place] [address] Care Team Providers Name Role Phone Unavailable Unavailable Unavailable Payers Payer Name Policy Type Policy Number Effective Date Expiration Date S ource Problems This patient has no known problems. Allergies, Adverse Reactions, Alerts Allergy Allergy Status Severity Reaction(s) Onset Inactive Treating Comm ents Source Name Type Date Date Clinician No Known DA Active U 2014-02 [facility] Allergie 04-04 [facility] Medications This patient has no known medications. Procedures This patient has no known procedures. Results This patient has no known results.
[2019-10-08 12:18] LABS: Urine Blood NEGATIVE (NEG); Urine Glucose NEGATIVE (NEG); Urine Protein NEGATIVE (NEG); Urine Specific Gravity 1.025 (1.005-1.030); Urine pH 5.5 (5.0-7.0)
[2019-10-08] MEDS ORDERED: KETOROLAC 30 MG/ML INJ ONE (12:34)
[2019-10-08 12:44] LABS: Urine RBC NONE SEEN /HPF (NONE SEEN)
[2019-10-08 12:45] LABS: Urine Bacteria 20-50 /HPF (<20); Urine Culture Reflex Order REFLEXED
--- NOTE | 2019-10-08 12:51 | ER ---
Nurse's Notes [facility] Name: Belinda Restrepo Age: 28 yrs Sex: Female : 1990 Arrival Date: 10/08/2019 Time: 11:30 Bed 17 Private MD: Diagnosis: Urinary tract infection, site not specified Presentation: 10/07 11:49 Chief complaint: Patient states: "I'm starting to get a yeast infection and my low back ss is hurting and I'm having pain when I urinate.". Coronavirus screen: Client denies travel out of the [place] in the last 14 days. Ebola Screen: Patient denies exposure to infectious person. Patient denies travel to an Ebola-affected area in the 21 days before illness onset. Initial Sepsis Screen: Does the patient meet any 2 criteria? No. Patient's initial sepsis screen is negative. Does the patient have a suspected source of infection? No. Patient's initial sepsis screen is negative. Risk Assessment: Do you want to hurt yourself or someone else? Patient reports no desire to harm self or others. Onset of symptoms was October 07, 2019. 11:49 Method Of Arrival: Ambulatory ss 11:49 Acuity: JULIO 3 ss Historical: - Allergies: 11:52 No Known Allergies; ss - Home Meds: 11:52 None [Active]; ss - PMHx: 11:52 PCOS; ss - PSHx: 11:52 ; ss - Immunization history:: Adult Immunizations up to date. - Social history:: Smoking status: Patient denies any tobacco usage or history of. Screenin:53 Abuse screen: Denies threats or abuse. Denies injuries from another. Nutritional ss screening: No deficits noted. Tuberculosis screening: Never had TB. Assessment: 12:20 General: Appears in no apparent distress. comfortable, Behavior is calm, cooperative, em appropriate for age, Denies fever. Pain: Complains of pain in low back area Pain currently is 5 out of 10 on a pain scale. Neuro: Level of Consciousness is awake, alert, obeys commands, Oriented to person, place, time, situation, Appropriate for age. Cardiovascular: Capillary refill < 3 seconds Patient's skin is warm and dry. Respiratory: Airway is patent Respiratory effort is even, unlabored, Respiratory pattern is regular, symmetrical. : Reports burning with urination. Derm: Skin is intact, is healthy with good turgor, Skin is pink, warm \\T\\ dry. Musculoskeletal: Capillary refill < 3 seconds, Range of motion: intact in all extremities. 12:25 Reassessment: refused IM pain medication at this time, instructed to see if maybe a em pill would help, pt states pain is tolerable and would inform us if anything changed. Vital Signs: 11:49 BP 132 / 83; Pulse 77; Resp 15; Temp 97.6(TE); Pulse Ox 98% on R/A; Weight 72.57 kg; ss Height 5 ft. 5 in. (165.10 cm); Pain 5/10; 11:49 Body Mass Index 26.63 (72.57 kg, 165.10 cm) ED Course: 11:30 Patient arrived in ED. ds1 11:37 Supa Keita PA is PHCP. cp 11:37 Fransisco Keyes MD is Attending Physician. cp 11:46 Paresh Pond RN is Primary Nurse. em 11:52 Triage completed. ss 11:52 Arm band placed on right wrist. ss 11:53 Patient has correct armband on for positive identification. Bed in low position. Call ss light in reach. 12:07 Verbal reassurance given. jp3 12:07 Urine collected: clean catch specimen, clear, chinyere colored. jp3 12:55 No provider procedures requiring assistance completed. Patient did not have IV access ss during this emergency room visit. Administered Medications: 12:48 Not Given (Patient Refused): TORadol 30 mg IM once em Outcome: 12:51 Discharge ordered by MD. cp 12:55 Discharged to home ambulatory. ss 12:55 Condition: good 12:55 Discharge instructions given to patient, Instructed on discharge instructions, follow up and referral plans. medication usage, Demonstrated understanding of instructions, follow-up care, medications, Prescriptions given X 2. 12:56 Patient left the ED. Signatures: Paresh Pond RN RN em Sanford, Demi ds1 Marychuy Keith RN RN Supa Keita PA PA cp Pisarski, Jacob jp3
--- NOTE | 2019-10-08 12:51 | EDPHYS ---
Physician Documentation [facility] Name: Belinda Restrepo Age: 28 yrs Sex: Female : 1990 Arrival Date: 10/08/2019 Time: 11:30 Bed 17 Private MD: ED Physician Fransisco Keyes HPI: 10/07 11:45 This 28 yrs old Female presents to ER via Ambulatory with complaints of Low cp Back Pain, Pain With Urination. 11:45 The patient presents with pain that is acute, with no known mechanism of injury. The cp symptoms are located in the low back. The pain does not radiate. Associated signs and symptoms: Pertinent positives: dysuria, urinary frequency, Pertinent negatives: abdominal pain, fever, incontinence, urinary retention. Severity of symptoms: in the emergency department the symptoms are unchanged. Patient also reports concern for vaginal yeast infection and reports in cream doesn't work and that she is prescribed oral medication. Historical: - Allergies: 11:52 No Known Allergies; ss - Home Meds: 11:52 None [Active]; ss - PMHx: 11:52 PCOS; ss - PSHx: 11:52 ; ss - Immunization history:: Adult Immunizations up to date. - Social history:: Smoking status: Patient denies any tobacco usage or history of. ROS: 11:50 Constitutional: Negative for body aches, chills, fever. cp 11:50 Cardiovascular: Negative for chest pain. cp 11:50 Respiratory: Negative for cough, shortness of breath, wheezing. 11:50 Abdomen/GI: Negative for abdominal pain, nausea, vomiting, and diarrhea, constipation. 11:50 Back: Positive for pain at rest, pain with movement, of the low back area. 11:50 : Positive for urinary frequency, burning with urination. 11:50 Neuro: Negative for numbness, tingling, weakness. 11:50 All other systems are negative. Exam: 11:55 Constitutional: The patient appears in no acute distress, alert, awake, non-toxic, well cp developed, well nourished. 11:55 Head/Face: Normocephalic, atraumatic. cp 11:55 Chest/axilla: Inspection: normal. 11:55 Cardiovascular: Rate: normal. 11:55 Respiratory: the patient does not display signs of respiratory distress, Respirations: normal, no use of accessory muscles, no retractions, labored breathing, is not present. 11:55 Abdomen/GI: Inspection: abdomen appears normal, Palpation: abdomen is soft and non-tender, in all quadrants. 11:55 Back: CVA tenderness, is absent. Vital Signs: 11:49 BP 132 / 83; Pulse 77; Resp 15; Temp 97.6(TE); Pulse Ox 98% on R/A; Weight 72.57 kg; ss Height 5 ft. 5 in. (165.10 cm); Pain 5/10; 11:49 Body Mass Index 26.63 (72.57 kg, 165.10 cm) ss MDM: 11:44 Patient medically screened. cp 12:50 Data reviewed: vital signs, nurses notes, lab test result(s). cp 12:50 Differential diagnosis: Herniated disc UTI, pyelonephritis. Counseling: I had a cp detailed discussion with the patient and/or guardian regarding: the historical points, exam findings, and any diagnostic results supporting the discharge/admit diagnosis, lab results, to return to the emergency department if symptoms worsen or persist or if there are any questions or concerns that arise at home. 10/07 12:07 Order name: Urine Microscopic Only; Complete Time: 12:48 10/07 12:48 Interpretation: Normal except: UBACT 20-50. 10/07 12:09 Order name: Urine Dipstick--Ancillary (enter results); Complete Time: 12:41 eb 10/07 12:41 Interpretation: Reviewed. 10/07 11:38 Order name: Urine Test (obtain specimen); Complete Time: 12:07 10/07 12:09 Order name: Urine --Ancillary (enter results); Complete Time: 12:41 eb 10/07 12:46 Order name: Urine Culture EDAL 10/07 11:38 Order name: Urine Dipstick-Ancillary (obtain specimen); Complete Time: 12:07 cp Administered Medications: 12:48 Not Given (Patient Refused): TORadol 30 mg IM once em Disposition: 13:00 Chart complete. cp Disposition: 10/08/19 12:51 Discharged to Home. Impression: Urinary tract infection, site not specified. - Condition is Stable. - Discharge Instructions: Urinary Tract Infection, Adult. - Prescriptions for Fluconazole 200 mg Oral Tablet - take 1 tablet by ORAL route as directed take 1 tablet now and second tablet after finishing antibiotics; 2 tablet. Bactrim DS 800- 160 mg Oral Tablet - take 1 tablet by ORAL route every 12 hours for 7 days; 14 tablet. - Medication Reconciliation Form, Thank You Letter, Antibiotic Education, Prescription Opioid Use form. - Follow up: Private Physician; When: 2 - 3 days; Reason: Worsening of condition. - Problem is new. - Symptoms are unchanged. Signatures: Dispatcher [employer] [facility] Marychuy Keith RN RN ss Supa Keita PA PA cp Munoz, Edgar RN em Corrections: (The following items were deleted from the chart) 12:56 12:51 10/08/2019 12:51 Discharged to Home. Impression: Urinary tract infection, site ss not specified. Condition is Stable. Forms are Medication Reconciliation Form, Thank You Letter, Antibiotic Education, Prescription Opioid Use. Follow up: Private Physician; When: 2 - 3 days; Reason: Worsening of condition. Problem is new. Symptoms are unchanged. cp
[2019-10-12 00:41] VITALS: BP 132/83; TEMP 97.6; O2SAT 98
== END 2019-10-08 12:56 | disposition home or self-care (01) ==
LOC: ER 11:26
DX: N39.0 Urinary tract infection, site not specified (principal)
CPT/HCPCS: 81003; 81015; 81025; 87086; 87088; 99283

== ENCOUNTER 2019-11-15 16:51 | Emergency (ER) | payer OTHER ==
--- NOTE | 2019-11-15 18:57 | ER ---
Nurse's Notes [facility] Name: Belinda Restrepo Age: 28 yrs Sex: Female : 1990 Arrival Date: 11/15/2019 Time: 16:54 Bed Waiting Private MD: Diagnosis: Presentation: 11/14 17:00 Chief complaint: Patient states: R elbow pain for 2 months, getting slowly more ll1 painful. No trauma or MVC's. Coronavirus screen: Client denies travel out of the [place] in the last 14 days. At this time, the client does not indicate any symptoms associated with coronavirus-19. Ebola Screen: Patient denies travel to an Ebola-affected area in the 21 days before illness onset. Initial Sepsis Screen: Does the patient meet any 2 criteria? No. Patient's initial sepsis screen is negative. Does the patient have a suspected source of infection? Yes: Other: R elbow. Risk Assessment: Do you want to hurt yourself or someone else? Patient reports no desire to harm self or others. Onset of symptoms was September 15, 2019. 17:00 Method Of Arrival: Ambulatory ll1 17:00 Acuity: JULIO 4 ll1 Historical: - Allergies: 17:02 No Known Allergies; ll1 - PMHx: 17:02 PCOS; ll1 - PSHx: 17:02 ; ll1 - Immunization history:: Flu vaccine is not up to date. - Social history:: Smoking status: Patient denies any tobacco usage or history of. Vital Signs: 17:00 BP 124 / 89; Pulse 82; Resp 17; Temp 98.4; Pulse Ox 100% ; Height 5 ft. 5 in. (165.10 ll1 cm); Pain 7/10; ED Course: 16:54 Patient arrived in ED. bp1 17:01 Triage completed. ll1 17:02 Arm band placed on. ll1 Administered Medications: No medications were administered Outcome: 18:56 Patient left the ED. ll1 Signatures: Mabel Mata RN RN ll1 Radha Jackson bp1
[2019-11-15 19:52] VITALS: BP 124/89; TEMP 98.4; O2SAT 100
--- OUTSIDE RECORDS SUMMARY | 2019-11-17 16:38 | XMS REPORT | Continuity of Care Document ---
:1990 Author Organization [facility] t Address [address] [place] [address] Care Team Providers Name Role Phone Unavailable [...]
== END 2019-11-15 18:56 | disposition left against medical advice (07) ==
LOC: ER 16:51
DX: Z53.21 Procedure and treatment not carried out due to patient leaving prior to being seen by health care provider (principal)
CPT/HCPCS: 99281

== ENCOUNTER 2019-11-17 16:34 | Emergency (ER) | payer OTHER ==
--- NOTE | 2019-11-17 17:26 | ER ---
Nurse's Notes [facility] Name: Belinda Restrepo Age: 28 yrs Sex: Female : 1990 Arrival Date: 11/17/2019 Time: 16:36 Bed 8 Private MD: Diagnosis: Tendinitis right elbow Presentation: 11/16 16:44 Chief complaint: Patient states: right elbow pain x 2 months ago. pt denies any known aa5 injury. Coronavirus screen: Client denies travel out of the [place] in the last 14 days. At this time, the client does not indicate any symptoms associated with coronavirus-19. Ebola Screen: Patient negative for fever greater than or equal to 101.5 degrees Fahrenheit, and additional compatible Ebola Virus Disease symptoms. Initial Sepsis Screen: Does the patient meet any 2 criteria? No. Patient's initial sepsis screen is negative. Does the patient have a suspected source of infection? No. Patient's initial sepsis screen is negative. Risk Assessment: Do you want to hurt yourself or someone else? Patient reports no desire to harm self or others. Onset of symptoms was 2020. 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 - Social history:: Smoking status: Patient denies any tobacco usage or history of. - Family history:: not pertinent. - Hospitalizations: : No recent hospitalization is reported. Screenin:00 Abuse screen: Denies threats or abuse. Denies injuries from another. Nutritional jl7 screening: No deficits noted. Tuberculosis screening: No symptoms or risk factors identified. Fall Risk None identified. Assessment: 17:00 General: Appears in no apparent distress. uncomfortable, Behavior is cooperative, jl7 appropriate for age, anxious. Pain: Complains of pain in right elbow Pain currently is 7 out of 10 on a pain scale. at worst was 10 out of 10 on a pain scale. Pain began x 2 months Is continuous. Neuro: Level of Consciousness is awake, alert, obeys commands, Oriented to person, place, time, situation. Cardiovascular: Patient's skin is warm and dry. Respiratory: Airway is patent Respiratory effort is even, unlabored, Respiratory pattern is regular, symmetrical. Derm: Skin is pink, warm \T\ dry. Musculoskeletal: Range of motion: intact in all extremities, Swelling present in right elbow. 17:40 Reassessment: Pt will be discharged once shot time is up. jl7 Vital Signs: 16:44 BP 119 / 87; Pulse 78; Resp 18 S; Temp 98.7(O); Pulse Ox 100% on R/A; Weight 77.11 kg aa5 (R); Height 5 ft. 5 in. (165.10 cm) (R); Pain 7/10; 17:56 Pulse 75; Resp 17; Pulse Ox 100% ; jl7 16:44 Body Mass Index 28.29 (77.11 kg, 165.10 cm) aa5 ED Course: 16:36 Patient arrived in ED. as 16:44 Arm band placed on. aa5 16:45 Triage completed. aa5 16:48 Odin Rodriguez MD is Attending Physician. rn 17:00 Patient has correct armband on for positive identification. Bed in low position. Call jl7 light in reach. Side rails up X 1. 17:07 Alejandra Lemus, WILLIAM is Primary Nurse. jl7 17:19 XRAY Elbow RIGHT 3 view In Process Unspecified. EDMS 17:56 No provider procedures requiring assistance completed. Patient did not have IV access jl7 during this emergency room visit. Sling applied to right arm. Administered Medications: 17:30 Not Given (Duplicate Order): Decadron 10 mg IM once rn 17:35 Drug: TORadol 30 mg Route: IM; Site: left deltoid; jl7 17:56 Follow up: Response: No adverse reaction jl7 17:38 Drug: predniSONE 60 mg Route: PO; jl7 17:56 Follow up: Response: No adverse reaction jl7 Outcome: 17:25 Discharge ordered by . rn 17:56 Discharged to home ambulatory. jl7 17:56 Condition: stable 17:56 Discharge instructions given to patient, Instructed on discharge instructions, follow up and referral plans. medication usage, Demonstrated understanding of instructions, follow-up care, medications, Prescriptions given X 2. 17:58 Patient left the ED. jl7 Signatures: Dispatcher [employer] Julissa Valentin Roman, MD MD rn Calderon, Audri, RN RN aa5 Alejandra Lemus RN RN jl7
--- NOTE | 2019-11-17 17:26 | EDPHYS ---
Physician Documentation [facility] Name: Belinda Restrepo Age: 28 yrs Sex: Female : 1990 Arrival Date: 11/17/2019 Time: 16:36 Bed 8 Private MD: ED Physician Odin Rodriguez HPI: 11/16 16:58 This 28 yrs old Female presents to ER via Ambulatory with complaints of Elbow rn Pain. 16:58 The patient or guardian complains of pain, that is acute. The complaints affect the rn right elbow. 17:21 Onset: The symptoms/episode began/occurred 2 month(s) ago. Modifying factors: The rn symptoms are alleviated by nothing. the symptoms are aggravated by movement, lifting weight, bending arm. Severity of symptoms: At their worst the symptoms were moderate, in the emergency department the symptoms are unchanged. The patient has not experienced similar symptoms in the past. The patient has not recently seen a physician. Denies injury, 2 months of right elbow pain, hurts to bend, move, lift, rotate, no pain in shoulder or wrist. No numbness/tingling. No swelling. . 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 - Social history:: Smoking status: Patient denies any tobacco usage or history of. - Family history:: not pertinent. - Hospitalizations: : No recent hospitalization is reported. ROS: 17:21 Constitutional: Negative for fever, chills, and weight loss, Neck: Negative for injury, rn pain, and swelling, Cardiovascular: Negative for chest pain, palpitations, and edema, Respiratory: Negative for shortness of breath, cough, wheezing, and pleuritic chest pain, MS/Extremity: Negative for injury and deformity, Skin: Negative for injury, rash, and discoloration, Neuro: Negative for headache, weakness, numbness, tingling, and seizure. Exam: 17:21 Constitutional: This is a well developed, well nourished patient who is awake, alert, rn and in no acute distress. MS/ Extremity: Pulses equal, no cyanosis. Neurovascular intact. Tenderness all around right elbow, no redness/warmth/swelling/deformity. NO focal tenderness. Painful ROM. No pain with ROM right shoulder or wrist. No muscular tenderness or swelling. Compartments soft. Vital Signs: 16:44 BP 119 / 87; Pulse 78; Resp 18 S; Temp 98.7(O); Pulse Ox 100% on R/A; Weight 77.11 kg aa5 (R); Height 5 ft. 5 in. (165.10 cm) (R); Pain 7/10; 17:56 Pulse 75; Resp 17; Pulse Ox 100% ; jl7 16:44 Body Mass Index 28.29 (77.11 kg, 165.10 cm) aa5 MDM: 16:48 Patient medically screened. rn 17:21 Differential diagnosis: tendonitis. Data reviewed: vital signs, nurses notes, rn radiologic studies, and as a result, I will discharge patient. Test interpretation: by ED physician or midlevel provider: plain radiologic studies, Xray right elbow without gross fracture/dislocation. Counseling: I had a detailed discussion with the patient and/or guardian regarding: the historical points, exam findings, and any diagnostic results supporting the discharge/admit diagnosis, radiology results, the need for outpatient follow up, to return to the emergency department if symptoms worsen or persist or if there are any questions or concerns that arise at home. Special discussion: I discussed with the patient/guardian in detail that at this point there is no indication for admission to the hospital. It is understood, however, that if the symptoms persist or worsen the patient needs to return immediately for re-evaluation. 11/16 16:57 Order name: XRAY Elbow RIGHT 3 view; Complete Time: 17:53 rn 11/16 17:21 Order name: Sling; Complete Time: 18:00 rn Administered Medications: 17:30 Not Given (Duplicate Order): Decadron 10 mg IM once rn 17:35 Drug: TORadol 30 mg Route: IM; Site: left deltoid; 7 17:56 Follow up: Response: No adverse reaction jl7 17:38 Drug: predniSONE 60 mg Route: PO; jl7 17:56 Follow up: Response: No adverse reaction jl7 Disposition: 11/17/19 17:25 Discharged to Home. Impression: Tendinitis right elbow. - Condition is Stable. - Discharge Instructions: Tendinitis. - Prescriptions for Medrol (Alin) 4 mg Oral Tablets, Dose Pack - take 1 tablet by ORAL route as directed - follow package instructions; 1 packet. Cyclobenzaprine 5 mg Oral Tablet - take 1 tablet by ORAL route 3 times per day As needed; 15 tablet. - Medication Reconciliation Form, Thank You Letter, Antibiotic Education, Prescription Opioid Use form. - Follow up: Private Physician; When: As needed; Reason: Recheck today's complaints, Re-evaluation by your physician. - Problem is an ongoing problem. - Symptoms are unchanged. Signatures: Dispatcher [employer] EDMS Odin Rodriguez MD MD rn Calderon, Gwen, RN RN aa5 Alejandra Lemus RN RN jl7 Corrections: (The following items were deleted from the chart) 17:23 17:21 Constitutional: Negative for fever, chills, and weight loss, MS/Extremity: rn Negative for injury and deformity, Skin: Negative for injury, rash, and discoloration, Neuro: Negative for headache, weakness, numbness, tingling, and seizure, rn 17:23 17:21 Constitutional: Negative for fever, chills, and weight loss, Cardiovascular: rn Negative for chest pain, palpitations, and edema, Respiratory: Negative for shortness of breath, cough, wheezing, and pleuritic chest pain, MS/Extremity: Negative for injury and deformity, Skin: Negative for injury, rash, and discoloration, Neuro: Negative for headache, weakness, numbness, tingling, and seizure, rn 17:58 17:25 11/17/2019 17:25 Discharged to Home. Impression: Tendinitis right elbow. jl7 Condition is Stable. Forms are Medication Reconciliation Form, Thank You Letter, Antibiotic Education, Prescription Opioid Use. Follow up: Private Physician; When: As needed; Reason: Recheck today's complaints, Re-evaluation by your physician. Problem is an ongoing problem. Symptoms are unchanged. rn
--- NOTE | 2019-11-17 17:32 | RAD REPORT ---
EXAM DESCRIPTION: RAD - Elbow Right 3 View - 11/17/2019 5:19 pm CLINICAL HISTORY: Right elbow pain FINDINGS: No fracture or dislocation is seen. No bone or joint abnormality noted
[2019-11-17] MEDS ORDERED: predniSONE 20 MG TAB ONE (17:43)
[2019-11-17] MEDS ORDERED: KETOROLAC 30 MG/ML INJ ONE (17:43)
[2019-11-17 18:45] VITALS: BP 119/87; TEMP 98.7; O2SAT 100
--- OUTSIDE RECORDS SUMMARY | 2019-11-18 05:23 | XMS REPORT | Continuity of Care Document ---
:1990 Author Organization [facility] t Address [address] [place] [address] Care Team Providers Name Role Phone Unavailable Unavailable Unavailable Payers Payer Name Policy Type Policy Number Effective Date Expiration Date S ource Problems This patient has no known problems. Allergies, Adverse Reactions, Alerts Allergy Allergy Status Severity Reaction(s) Onset Inactive Treating Comm ents Source Name Type Date Date Clinician No Known DA Active U 2014-02 [facility] 2-24 [facility] Medications This patient has no known medications. Procedures This patient has no known procedures. Results This patient has no known results.
== END 2019-11-17 17:58 | disposition home or self-care (01) ==
LOC: ER 16:34
DX: M77.11 Lateral epicondylitis, right elbow (principal)
CPT/HCPCS: 73080; 96372; 99284; J7512

== ENCOUNTER 2020-01-15 19:43 | Emergency (ER) | payer OTHER ==
--- OUTSIDE RECORDS SUMMARY | 2020-01-15 19:45 | XMS REPORT | Continuity of Care Document ---
:1990 Author Organization [facility] t Address [address] [place] [address] Care Team Providers Name Role Phone Unavailable Unavailable Unavailable Payers Payer Name Policy Type Policy Number Effective Date Expiration Date S ource Problems This patient has no known problems. Allergies, Adverse Reactions, Alerts Allergy Allergy Status Severity Reaction(s) Onset Inactive Treating Comm ents Source Name Type Date Date Clinician No Known DA Active U 2014-02 [facility] All[facility]ie 2-24 [facility] Medications This patient has no known medications. Procedures This patient has no known procedures. Results This patient has no known results.
--- NOTE | 2020-01-15 20:36 | EDPHYS ---
Physician Documentation [facility] Name: Belinda Restrepo Age: 29 yrs Sex: Female : 1990 Arrival Date: 01/15/2020 Time: 19:45 Bed 28 Private MD: ED Physician Ned Sánchez HPI: 01/15 00:22 This 29 yrs old Female presents to ER via Ambulatory with complaints of Pain tw4 With Urination. 00:22 The patient presents with urinary symptoms, dysuria, frequency. Onset: The tw4 symptoms/episode began/occurred yesterday. Modifying factors: The symptoms are alleviated by nothing, the symptoms are aggravated by nothing. The patient has not experienced similar symptoms in the past. 00:27 Associated signs and symptoms: Pertinent positives: BACK PAIN. 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 - Social history:: Smoking status: Patient denies any tobacco usage or history of. ROS: 01/15 00:22 Positive for urinary symptoms. tw4 Constitutional: Negative for fever, chills, and weight loss, Cardiovascular: Negative for chest pain, palpitations, and edema, Respiratory: Negative for shortness of breath, cough, wheezing, and pleuritic chest pain, Abdomen/GI: Negative for abdominal pain, nausea, vomiting, diarrhea, and constipation, Back: Negative for injury and pain, MS/Extremity: Negative for injury and deformity, Skin: Negative for injury, rash, and discoloration, Neuro: Negative for headache, weakness, numbness, tingling, and seizure. Exam: 00:22 Constitutional: This is a well developed, well nourished patient who is awake, alert, tw4 and in no acute distress. Head/Face: Normocephalic, atraumatic. Chest/axilla: Normal chest wall appearance and motion. Nontender with no deformity. No lesions are appreciated. Cardiovascular: Regular rate and rhythm with a normal S1 and S2. No gallops, murmurs, or rubs. Normal PMI, no JVD. No pulse deficits. Respiratory: Lungs have equal breath sounds bilaterally, clear to auscultation and percussion. No rales, rhonchi or wheezes noted. No increased work of breathing, no retractions or nasal flaring. Abdomen/GI: Soft, non-tender, with normal bowel sounds. No distension or tympany. No guarding or rebound. No evidence of tenderness throughout. Back: No spinal tenderness. No costovertebral tenderness. Full range of motion. MS/ Extremity: Pulses equal, no cyanosis. Neurovascular intact. Full, normal range of motion. Neuro: Awake and alert, GCS 15, oriented to person, place, time, and situation. Cranial nerves II-XII grossly intact. Motor strength 5/5 in all extremities. Sensory grossly intact. Cerebellar exam normal. Normal gait. Vital Signs: 01/14 19:57 BP 121 / 89; Pulse 91; Resp 16 S; Temp 97.9; Pulse Ox 98% on R/A; Weight 74.84 kg (R); ca1 Height 5 ft. 5 in. (165.10 cm) (R); Pain 8/10; 20:42 BP 115 / 78; Pulse 85; Resp 19; Pulse Ox 99% ; rr5 19:57 Body Mass Index 27.46 (74.84 kg, 165.10 cm) ca1 MDM: 20:21 Patient medically screened. tw4 20:34 Differential diagnosis: urinary tract infection. Data reviewed: vital signs, nurses tw4 notes. Data reviewed: lab test result(s), urinalysis. Data interpreted: Pulse oximetry: Interpretation: normal. Counseling: I had a detailed discussion with the patient and/or guardian regarding: the historical points, exam findings, and any diagnostic results supporting the discharge/admit diagnosis, lab results. Special discussion: I discussed with the patient/guardian in detail that at this point there is no indication for admission to the hospital. It is understood, however, that if the symptoms persist or worsen the patient needs to return immediately for re-evaluation. 01/14 20:22 Order name: Urine Microscopic Only tw4 01/14 20:31 Order name: Urine Dipstick--Ancillary (enter results) mw2 01/14 20:22 Order name: Urine Dipstick-Ancillary (obtain specimen); Complete Time: 20:28 tw4 01/14 20:22 Order name: Urine Test (obtain specimen); Complete Time: 20:28 tw4 01/14 20:31 Order name: Urine --Ancillary (enter results) mw2 Administered Medications: No medications were administered Disposition: 01/15/20 20:35 Discharged to Home. Impression: Dysuria, Low back pain. - Condition is Stable. - Discharge Instructions: Dysuria, Back Pain, Adult, [id number]. - Prescriptions for Ibuprofen 800 mg Oral Tablet - take 1 tablet by ORAL route every 8 hours As needed take with food; 30 tablet. Macrodantin 100 mg Oral Capsule - take 1 capsule by ORAL route every 6 hours for 10 days; 40 capsule. Pyridium 200 mg Oral Tablet - take 1 tablet by ORAL route every 8 hours for 3 days; 9 tablet. Diflucan 150 mg Oral Tablet - take 1 tablet by ORAL route one time for 1 day; 1 tablet. - Medication Reconciliation Form, Thank You Letter, Antibiotic Education, Prescription Opioid Use form. - Follow up: Private Physician; When: Upon discharge from the Emergency Department; Reason: Recheck today's complaints, Continuance of care, Re-evaluation by your physician. - Problem is new. - Symptoms are unchanged. Signatures: Dispatcher [employer] EDMS Ned Sánchez MD MD tw4 Eligio Victor RN RN rr5 Minal Feng RN RN ca1 Corrections: (The following items were deleted from the chart) 20:35 20:35 01/15/2020 20:35 Discharged to Home. Impression: Dysuria. Condition is Stable. tw4 Forms are Medication Reconciliation Form, Thank You Letter, Antibiotic Education, Prescription Opioid Use. Follow up: Private Physician; When: Upon discharge from the Emergency Department; Reason: Recheck today's complaints, Continuance of care, Re-evaluation by your physician. Problem is new. Symptoms are unchanged. tw4 20:51 20:35 01/15/2020 20:35 Discharged to Home. Impression: Dysuria; Low back pain. rr5 Condition is Stable. Forms are Medication Reconciliation Form, Thank You Letter, Antibiotic Education, Prescription Opioid Use. Follow up: Private Physician; When: Upon discharge from the Emergency Department; Reason: Recheck today's complaints, Continuance of care, Re-evaluation by your physician. Problem is new. Symptoms are unchanged. tw4
--- NOTE | 2020-01-15 20:36 | ER ---
Nurse's Notes [facility] Name: Belinda Restrepo Age: 29 yrs Sex: Female : 1990 Arrival Date: 01/15/2020 Time: 19:45 Bed 28 Private MD: Diagnosis: Dysuria;Low back pain Presentation: 01/14 19:57 Chief complaint: Patient states: I have a yeast infection and a UTI x 1 week. Reports ca1 low back pain, burning with urination, urgency and frequency. Denies fever. Coronavirus screen: Client denies travel out of the [place] in the last 14 days. At this time, the client does not indicate any symptoms associated with coronavirus-19. Ebola Screen: Patient negative for fever greater than or equal to 101.5 degrees Fahrenheit, and additional compatible Ebola Virus Disease symptoms Patient denies exposure to infectious person. Patient denies travel to an Ebola-affected area in the 21 days before illness onset. No symptoms or risks identified at this time. Initial Sepsis Screen: Does the patient meet any 2 criteria? No. Patient's initial sepsis screen is negative. Does the patient have a suspected source of infection? No. Patient's initial sepsis screen is negative. Risk Assessment: Do you want to hurt yourself or someone else? Patient reports no desire to harm self or others. Onset of symptoms was January 15, 2020. 19:57 Method Of Arrival: Ambulatory ca1 19:57 Acuity: JULIO 4 ca1 Triage Assessment: 20:15 General: Appears in no apparent distress. comfortable, Behavior is calm, cooperative, rr5 appropriate for age. 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 - Social history:: Smoking status: Patient denies any tobacco usage or history of. Screenin:30 Abuse screen: Denies threats or abuse. Denies injuries from another. Nutritional rr5 screening: No deficits noted. Tuberculosis screening: No symptoms or risk factors identified. Fall Risk None identified. Total Jett Fall Scale indicates No Risk (0-24 pts). Assessment: 20:15 General: Appears in no apparent distress. comfortable, Behavior is calm, cooperative, rr5 appropriate for age. 20:15 Pain: Complains of pain in pelvis Quality of pain is described as aching, Pain began rr5 gradually, Is intermittent. Neuro: Level of Consciousness is awake, alert, obeys commands, Oriented to person, place, time. Cardiovascular: Capillary refill < 3 seconds Patient's skin is warm and dry. Respiratory: Airway is patent Respiratory effort is even, unlabored, Respiratory pattern is regular, symmetrical. GI: No signs and/or symptoms were reported involving the gastrointestinal system. : Urine is clear, Reports burning with urination. EENT: No signs and/or symptoms were reported regarding the EENT system. Derm: Skin is intact, is healthy with good turgor, Skin temperature is warm. Musculoskeletal: Circulation, motion, and sensation intact. Capillary refill < 3 seconds. 20:50 Reassessment: Patient appears in no apparent distress at this time. Patient is alert, rr5 oriented x 3, equal unlabored respirations, skin warm/dry/pink. discharge instruction given and explained without complaints made. Vital Signs: 19:57 BP 121 / 89; Pulse 91; Resp 16 S; Temp 97.9; Pulse Ox 98% on R/A; Weight 74.84 kg (R); ca1 Height 5 ft. 5 in. (165.10 cm) (R); Pain 8/10; 20:42 BP 115 / 78; Pulse 85; Resp 19; Pulse Ox 99% ; rr5 19:57 Body Mass Index 27.46 (74.84 kg, 165.10 cm) ca1 ED Course: 19:45 Patient arrived in ED. cl3 19:58 Triage completed. ca1 19:59 Arm band placed on right wrist. ca1 20:12 Eligio Victor, WILLIAM is Primary Nurse. rr5 20:18 Ned Sánchez MD is Attending Physician. tw4 20:30 Patient has correct armband on for positive identification. Bed in low position. rr5 20:30 No provider procedures requiring assistance completed. Urine collected: clean catch rr5 specimen, clear. Patient did not have IV access during this emergency room visit. Administered Medications: No medications were administered Outcome: 20:35 Discharge ordered by . tw4 20:50 Discharged to home ambulatory. rr5 20:50 Condition: stable 20:50 Discharge instructions given to patient, Instructed on discharge instructions, follow up and referral plans. medication usage, Demonstrated understanding of instructions, follow-up care, medications, Prescriptions given X 4. 20:51 Patient left the ED. rr5 Signatures: Ned Sánchez MD MD tw4 Eligio Victor RN RN rr5 Minal Feng RN RN ca1 Jcarlos Mata cl3
[2020-01-15 20:46] LABS: Urine Blood NEGATIVE (NEG); Urine Glucose NEGATIVE (NEG); Urine Protein NEGATIVE (NEG); Urine Specific Gravity 1.015 (1.005-1.030); Urine pH 6.5 (5.0-7.0)
[2020-01-15 21:19] LABS: Urine Bacteria 20-50 /HPF (<20); Urine RBC <5 /HPF (NONE SEEN)
[2020-01-19 14:18] VITALS: TEMP 97.9
[2020-01-19 14:30] VITALS: BP 115/78; O2SAT 99
== END 2020-01-15 20:51 | disposition home or self-care (01) ==
LOC: ER 19:43
DX: M54.5 Low back pain (principal)
CPT/HCPCS: 81003; 81015; 81025; 87086; 87088; 99283

== ENCOUNTER 2020-03-09 21:45 | Emergency (ER) | payer OTHER ==
--- OUTSIDE RECORDS SUMMARY | 2020-03-09 21:48 | XMS REPORT | Continuity of Care Document ---
:1990 Author Organization [facility] t Address [address] [place] [address] Care Team Providers Name Role Phone Unavailable Unavailable Unavailable Payers Payer Name Policy Type Policy Number Effective Date Expiration Date S ource Problems This patient has no known problems. Allergies, Adverse Reactions, Alerts Allergy Allergy Status Severity Reaction(s) Onset Inactive Treating Comm ents Source Name Type Date Date Clinician No Known DA Active U 2014-02 [facility] Allergie 2-24 [facility] Medications This patient has no known medications. Procedures This patient has no known procedures. Results This patient has no known results.
[2020-03-09 22:48] LABS: Urine Blood NEGATIVE (NEG); Urine Glucose NEGATIVE (NEG); Urine Protein NEGATIVE (NEG); Urine Specific Gravity 1.015 (1.005-1.030)
[2020-03-10 00:49] LABS: Absolute Lymphocytes (CBC) 2.4 K/uL (0.7-4.9); Basophils % 0.6 % (0-1.3); Hematocrit 40.7 % (36.0-45.0); MPV 8.8 fL (7.6-11.3); RBC Red Blood Cell Count 4.49 M/uL (3.86-4.86)
--- NOTE | 2020-03-10 00:50 | EDPHYS ---
Physician Documentation [facility] Name: eBlinda Resrtepo Age: 29 yrs Sex: Female : 1990 Arrival Date: 03/09/2020 Time: 21:46 Bed 20 Private MD: CJ Physician Supa Deras HPI: 03/09 23:49 This 29 yrs old Female presents to ER via Ambulatory with complaints of judy Abdominal Cramping. 23:49 The patient presents to the emergency department with possible uterine contractions, judy abdominal pain, that started this morning, today. The estimated gestational age is 5 weeks. course: care: none. Associated signs and symptoms: The patient has no apparent associated signs or symptoms. The patient has not experienced similar symptoms in the past. Historical: - Allergies: 22:25 No Known Allergies; ll1 - PMHx: 22:25 PCOS; ll1 - PSHx: 22:25 ; ll1 - Immunization history:: Flu vaccine is not up to date. - Social history:: Smoking status: Patient denies any tobacco usage or history of. ROS: 23:50 Constitutional: Negative for fever, chills, and weight loss, Eyes: Negative for injury, judy pain, redness, and discharge, ENT: Negative for injury, pain, and discharge, Neck: Negative for injury, pain, and swelling, Cardiovascular: Negative for chest pain, palpitations, and edema, Respiratory: Negative for shortness of breath, cough, wheezing, and pleuritic chest pain, Back: Negative for injury and pain, : Negative for injury, bleeding, discharge, and swelling, MS/Extremity: Negative for injury and deformity, Skin: Negative for injury, rash, and discoloration, Neuro: Negative for headache, weakness, numbness, tingling, and seizure, Psych: Negative for depression, anxiety, suicide ideation, homicidal ideation, and hallucinations, Allergy/Immunology: Negative for hives, rash, and allergies, Endocrine: Negative for neck swelling, polydipsia, polyuria, polyphagia, and marked weight changes, Hematologic/Lymphatic: Negative for swollen nodes, abnormal bleeding, and unusual bruising. 23:50 Abdomen/GI: Positive for abdominal pain, of the right lower quadrant and left lower quadrant. Exam: 23:50 Constitutional: This is a well developed, well nourished patient who is awake, alert, judy and in no acute distress. Head/Face: Normocephalic, atraumatic. Eyes: Pupils equal round and reactive to light, extra-ocular motions intact. Lids and lashes normal. Conjunctiva and sclera are non-icteric and not injected. Cornea within normal limits. Periorbital areas with no swelling, redness, or edema. ENT: Nares patent. No nasal discharge, no septal abnormalities noted. Tympanic membranes are normal and external auditory canals are clear. Oropharynx with no redness, swelling, or masses, exudates, or evidence of obstruction, uvula midline. Mucous membranes moist. Neck: Trachea midline, no thyromegaly or masses palpated, and no cervical lymphadenopathy. Supple, full range of motion without nuchal rigidity, or vertebral point tenderness. No Meningismus. Chest/axilla: Normal chest wall appearance and motion. Nontender with no deformity. No lesions are appreciated. Cardiovascular: Regular rate and rhythm with a normal S1 and S2. No gallops, murmurs, or rubs. Normal PMI, no JVD. No pulse deficits. Respiratory: Lungs have equal breath sounds bilaterally, clear to auscultation and percussion. No rales, rhonchi or wheezes noted. No increased work of breathing, no retractions or nasal flaring. Back: No spinal tenderness. No costovertebral tenderness. Full range of motion. Skin: Warm, dry with normal turgor. Normal color with no rashes, no lesions, and no evidence of cellulitis. MS/ Extremity: Pulses equal, no cyanosis. Neurovascular intact. Full, normal range of motion. Neuro: Awake and alert, GCS 15, oriented to person, place, time, and situation. Cranial nerves II-XII grossly intact. Motor strength 5/5 in all extremities. Sensory grossly intact. Cerebellar exam normal. Normal gait. Psych: Awake, alert, with orientation to person, place and time. Behavior, mood, and affect are within normal limits. 23:50 Abdomen/GI: Inspection: abdomen appears normal, Bowel sounds: normal, in all quadrants, active, all quadrants, Palpation: mild abdominal tenderness, in all quadrants, Liver: no appreciated palpable abnormalities, Hernia: not appreciated. Vital Signs: 22:23 BP 130 / 89; Pulse 110; Resp 17; Temp 99.1; Pulse Ox 100% ; Weight 72.57 kg; Height 5 ll1 ft. 1 in. (154.94 cm); Pain 7/10; 23:58 BP 122 / 92; Pulse 100; Resp 18; Pulse Ox 99% on R/A; vg1 22:23 Body Mass Index 30.23 (72.57 kg, 154.94 cm) ll1 MDM: 23:35 Patient medically screened. judy 23:51 Differential diagnosis: threatened Ab, inevitable Ab, complete Ab, missed Ab, ectopic judy . Data reviewed: vital signs, nurses notes, lab test result(s), radiologic studies, ultrasound. Data interpreted: youth nutritional monitor: rate is 110 beats/min, rhythm is normal sinus rhythm, Pulse oximetry: on room air is 100 %. Test interpretation: by ED physician or midlevel provider:. Counseling: I had a detailed discussion with the patient and/or guardian regarding: the historical points, exam findings, and any diagnostic results supporting the discharge/admit diagnosis, lab results, radiology results. 03/09 22:45 Order name: Urine Dipstick--Ancillary (enter results) [facility] 03/09 22:45 Order name: Urine --Ancillary (enter results) [facility] 03/09 22:48 Order name: Urine --Ancillary; Complete Time: 00:49 [facility] 03/09 22:48 Order name: Urine Dipstick-Ancillary; Complete Time: 00:49 [facility] 03/09 23:29 Order name: Quantitative Hcg 03/09 23:29 Order name: Abo/rh Typing 03/09 22:45 Order name: Urine Dipstick-Ancillary (obtain specimen); Complete Time: 23:26 [facility] 03/09 22:45 Order name: Urine Test (obtain specimen); Complete Time: 23:26 [facility] 03/09 22:54 Order name: US Transvaginal Ob [facility] 03/09 23:29 Order name: Basic Metabolic Panel 03/09 23:29 Order name: CBC with Diff; Complete Time: 01:09 kb 03/09 23:30 Order name: HCG, Quantitative [facility] 03/09 23:30 Order name: ABO/RH typing [facility] 03/09 23:29 Order name: IV Saline Lock; Complete Time: 00:36 kb 03/09 23:29 Order name: Labs collected and sent; Complete Time: 00:36 kb 03/09 23:29 Order name: NPO; Complete Time: 00:36 kb Administered Medications: 03/10 00:46 Not Given (Patient Refused): NS 0.9% 1000 ml IV at 1 bolus Per protocol; 1000 mL bolus dm5 Disposition: 03/10/20 00:50 Discharged to Home. Impression: related conditions, unspecified, first trimester, Threatened . - Condition is Stable. - Discharge Instructions: Threatened Miscarriage, First Trimester of , Itza-lb-Aegd, First Trimester of , Threatened Miscarriage, Qktm-gl-Wjaz, Pelvic Rest. - Prescriptions for Vitamin 27- 0.8 mg Oral Tablet - take 1 tablet by ORAL route once daily; 30 tablet. - Medication Reconciliation Form, Thank You Letter, Antibiotic Education, Prescription Opioid Use form. - Follow up: Private Physician; When: 2 - 3 days; Reason: Recheck today's complaints, Continuance of care, Re-evaluation by your physician. Follow up: Evens Mcdaniels MD; When: 2 - 3 days; Reason: Recheck today's complaints, Re-evaluation by your physician. - Problem is new. - Symptoms have improved. Signatures: Dispatcher [employer] EDMS Doretha Martinez, MARINE OPERATIONS COORDINATOR-C MARINE OPERATIONS COORDINATOR-Celine Merritt, RN RN dm5 Supa Deras MD MD cha [place], MyKena mw2 Caprice Merino, RN RN ll2 Mabel Mata, RN RN ll1 Corrections: (The following items were deleted from the chart) 01:18 00:50 03/10/2020 00:50 Discharged to Home. Impression: related conditions, ll2 unspecified, first trimester; Threatened . Condition is Stable. Forms are Medication Reconciliation Form, Thank You Letter, Antibiotic Education, Prescription Opioid Use. Follow up: Private Physician; When: 2 - 3 days; Reason: Recheck today's complaints, Continuance of care, Re-evaluation by your physician. Follow up: Evens Mcdaniels; When: 2 - 3 days; Reason: Recheck today's complaints, Re-evaluation by your physician. Problem is new. Symptoms have improved. judy
--- NOTE | 2020-03-10 00:50 | ER ---
Nurse's Notes [facility] Name: Belinda Restrepo Age: 29 yrs Sex: Female : 1990 Arrival Date: 03/09/2020 Time: 21:46 Bed 20 Private MD: Diagnosis: related conditions, unspecified, first trimester;Threatened Presentation: 03/09 22:23 Chief complaint: Patient states: Positive test last week. Abdominal pains and ll1 cramping since 02/23/20. + N/V, especially after eating. G2, P1. Coronavirus screen: Client denies travel out of the [place] in the last 14 days. At this time, the client does not indicate any symptoms associated with coronavirus-19. Ebola Screen: Patient denies travel to an Ebola-affected area in the 21 days before illness onset. Initial Sepsis Screen: Does the patient meet any 2 criteria? HR > 90 bpm. No. Patient's initial sepsis screen is negative. Does the patient have a suspected source of infection? Yes: Acute abdominal pain. Risk Assessment: Do you want to hurt yourself or someone else? Patient reports no desire to harm self or others. Onset of symptoms was February 23, 2020. 22:23 Method Of Arrival: Ambulatory ll1 22:23 Acuity: JULIO 3 ll1 Historical: - Allergies: 22:25 No Known Allergies; ll1 - PMHx: 22:25 PCOS; ll1 - PSHx: 22:25 ; ll1 - Immunization history:: Flu vaccine is not up to date. - Social history:: Smoking status: Patient denies any tobacco usage or history of. Screenin:58 Abuse screen: Denies threats or abuse. Nutritional screening: No deficits noted. vg1 Tuberculosis screening: No symptoms or risk factors identified. Fall Risk No fall in past 12 months (0 pts). No secondary diagnosis (0 pts). IV access (20 points). Ambulatory Aid- None/Bed Rest/Nurse Assist (0 pts). Gait- Normal/Bed Rest/Wheelchair (0 pts) Mental Status- Oriented to own ability (0 pts). Total Jett Fall Scale indicates No Risk (0-24 pts). Assessment: 23:56 General: Appears in no apparent distress. comfortable, Behavior is cooperative, vg1 anxious. Pain: Complains of pain in left lower quadrant and right lower quadrant Pain currently is 7 out of 10 on a pain scale. Pain began 02/23/2020. Neuro: Level of Consciousness is awake, alert, obeys commands, Oriented to person, place, time, situation. Cardiovascular: Patient's skin is warm and dry. Respiratory: Airway is patent Respiratory effort is even, unlabored, Respiratory pattern is regular, symmetrical. GI: Bowel sounds present X 4 quads. Abd is soft X 4 quads Abdomen is tender to palpation in left lower quadrant and right lower quadrant. : No signs and/or symptoms were reported regarding the genitourinary system. EENT: No signs and/or symptoms were reported regarding the EENT system. Derm: Skin is intact, is healthy with good turgor. Musculoskeletal: Circulation, motion, and sensation intact. 03/10 00:50 Reassessment: Patient and/or family updated on plan of care and expected duration. Pain ll2 level reassessed. Patient is alert, oriented x 3, equal unlabored respirations, skin warm/dry/pink. 01:17 Reassessment: pt requested to leave, ERD notified and pt discharged. ll2 Vital Signs: 03/09 22:23 BP 130 / 89; Pulse 110; Resp 17; Temp 99.1; Pulse Ox 100% ; Weight 72.57 kg; Height 5 ll1 ft. 1 in. (154.94 cm); Pain 7/10; 23:58 BP 122 / 92; Pulse 100; Resp 18; Pulse Ox 99% on R/A; vg1 22:23 Body Mass Index 30.23 (72.57 kg, 154.94 cm) ll1 ED Course: 21:46 Patient arrived in ED. cl3 22:25 Triage completed. ll1 22:25 Arm band placed on. ll1 23:09 Patient's name was called from ER lobby. No response. dm5 23:15 US Transvaginal Ob In Process Unspecified. EDMS 23:34 Supa Deras MD is Attending Physician. judy 23:47 Pennie Hunter, RN is Primary Nurse. vg1 03/10 00:00 Patient has correct armband on for positive identification. Bed in low position. Call vg1 light in reach. Side rails up X 1. 00:18 Urine Dipstick--Ancillary (enter results) Sent. dm5 00:18 Urine --Ancillary (enter results) Sent. dm5 00:22 Initial lab(s) drawn, by me, sent to lab. Inserted saline lock: 20 gauge in right dm5 antecubital area, using aseptic technique. Blood collected. 00:41 Report given to Caprice THOMAS. vg1 00:49 Evens Mcdaniels MD is Referral Physician. judy 01:18 No provider procedures requiring assistance completed. IV discontinued, intact, ll2 bleeding controlled, No redness/swelling at site. Pressure dressing applied. Administered Medications: 00:46 Not Given (Patient Refused): NS 0.9% 1000 ml IV at 1 bolus Per protocol; 1000 mL bolus dm5 Outcome: 00:50 Discharge ordered by . judy 01:18 Discharged to home ambulatory. ll2 01:18 Condition: stable 01:18 Discharge instructions given to patient, Instructed on discharge instructions, follow up and referral plans. medication usage, Demonstrated understanding of instructions, follow-up care, medications, Prescriptions given X 1. 01:18 Patient left the ED. ll2 Signatures: Dispatcher [employer] EDMS Celine Paula, RN RN dm5 Supa Deras MD MD cha Lewis, Charde cl3 Caprice Merino, RN RN ll2 Pennie Hunter RN RN 1 Mabel Mata RN RN ll1 Corrections: (The following items were deleted from the chart) 00:46 00:37 NS 0.9% 1000 ml IV at 1 bolus in right antecubital dm5 dm5
[2020-03-10] MEDS ORDERED: NA CHLORIDE 0.9% 0 ML ONE (00:53)
[2020-03-10 01:22] LABS: BUN Blood Urea Nitrogen 9 mg/dL (7-18); Bicarbonate 25 mmol/L (21-32); Glucose Level 92 mg/dL (74-106); HCG, Quantitative 1218 mIU/mL (1-3); Potassium 3.7 mmol/L (3.5-5.1); Sodium Level 139 mmol/L (136-145)
[2020-03-10 02:16] VITALS: TEMP 99.1
[2020-03-10 02:17] VITALS: BP 122/92; O2SAT 99
--- NOTE | 2020-03-10 09:45 | RAD REPORT ---
EXAM DESCRIPTION: US - Transvaginal OB - 03/09/2020 11:19 pm CLINICAL HISTORY: ABD CRAMPING, COMPARISON: No comparisons FINDINGS: Preliminary findings were provided at the time of the study. Normal-sized uterus is present. No myometrial mass. No abnormal blood or fluid in the cul de sac. A s mall oval shaped fluid collection in the fundal endometrial cavity is most likely an early gestationa l sac. No yolk sac or pole identified. Average sac diameter corresponds to a 5 week 0 day age. Right ovary is identified with normal ovarian blood flow. There is a 5 centimeter thin-walled anechoi c right ovarian cyst present. No solid mass of the adnexa. Left ovary is obscured by bowel. No left a dnexal mass. Ectopic is not suspected currently. IMPRESSION: A 5 week 0 day size sac in the fundal endometrial cavity is likely a gestational sac solange t contains no pole or yolk sac. A 5 centimeter anechoic right ovarian cyst is present. No adnexal finding to suspect ectopic pregnanc y.
== END 2020-03-10 01:18 | disposition home or self-care (01) ==
LOC: ER 21:45
DX: O20.0 Threatened abortion (principal); Z3A.01 Less than 8 weeks gestation of pregnancy
CPT/HCPCS: 36415; 76817; 80048; 81003; 81025; 84702; 85025; 86900; 86901; 99284; J7030

== ENCOUNTER 2020-03-13 10:06 | Emergency (ER) | payer OTHER ==
--- OUTSIDE RECORDS SUMMARY | 2020-03-13 10:26 | XMS REPORT | Continuity of Care Document ---
:1990 Author Organization [facility] t Address [address] [place] [address] Care Team Providers Name Role Phone Unavailable Unavailable Unavailable Payers Payer Name Policy Type Policy Number Effective Date Expiration Date S ource Problems This patient has no known problems. Allergies, Adverse Reactions, Alerts Allergy Allergy Status Severity Reaction(s) Onset Inactive Treating Comm ents Source Name Type Date Date Clinician No Known DA Active U 2014-02 [facility] 2- [facility] Medications This patient has no known medications. Procedures This patient has no known procedures. Results This patient has no known results.
--- NOTE | 2020-03-13 13:26 | EDPHYS ---
Physician Documentation [facility] Name: Belinda Restrepo Age: 29 yrs Sex: Female : 1990 Arrival Date: 03/13/2020 Time: 10:11 Bed 11 Private MD: ED Physician Fransisco Keyes HPI: 03/13 12:21 This 29 yrs old Female presents to ER via Ambulatory with complaints of hcg cp check. 12:21 course: care: none, Leakage of Fluid: none appreciated, Ultrasound: cp the patient had an ultrasound, on March 10, 2020. 12:21 Patient presents to ED for repeat hcg level after being seen in [facility] ED 03-10-2020. cp Patient had US at that visit that showed single IUP. No complaints expressed. Historical: - Allergies: 11: No Known Allergies; iw - Home Meds: 11:02 oral oral daily [Active]; iw - PMHx: 11:02 PCOS; iw - PSHx: 11:02 ; iw - Immunization history:: Adult Immunizations Adult Immunizations not up to date. - Social history:: Smoking status: Patient denies any tobacco usage or history of. ROS: 12:25 Eyes: Negative for injury, pain, redness, and discharge. cp 12:25 Constitutional: Negative for body aches, chills, fever, poor PO intake. 12:25 ENT: Negative for ear pain, sore throat, difficulty swallowing, difficulty handling secretions. 12:25 Cardiovascular: Negative for chest pain, palpitations. 12:25 Respiratory: Negative for cough, shortness of breath, wheezing. 12:25 Abdomen/GI: Negative for abdominal pain, nausea, vomiting, and diarrhea, anorexia. 12:25 Back: Negative for pain at rest, pain with movement, radiated pain. 12:25 : Positive for vaginal discharge, Negative for urinary symptoms, vaginal bleeding. 12:25 All other systems are negative. Exam: 12:30 Head/Face: Normocephalic, atraumatic. cp 12:30 Constitutional: The patient appears in no acute distress, alert, awake, comfortable, non-toxic, well developed, well nourished. 12:30 Chest/axilla: Inspection: normal. 12:30 Cardiovascular: Rate: normal. 12:30 Respiratory: the patient does not display signs of respiratory distress, Respirations: normal, no use of accessory muscles, no retractions, labored breathing, is not present. 12:30 Abdomen/GI: Inspection: abdomen appears normal, Palpation: abdomen is soft and non-tender, in all quadrants. 12:30 Back: pain, is absent, ROM is normal. Vital Signs: 10:59 BP 129 / 90; Pulse 71; Resp 16; Temp 98.5(O); Pulse Ox 100% on R/A; Weight 74.84 kg; iw Height 5 ft. 5 in. (165.10 cm); 10:59 Body Mass Index 27.46 (74.84 kg, 165.10 cm) iw MDM: 12:21 ED course: Beta-hcg level ordered. Patient had US 03-10-2020 here at [facility] showing single cp IUP. 12:49 Patient medically screened. cp 13:00 Differential diagnosis: STD, threatened Ab, inevitable Ab. cp 13:10 Data reviewed: vital signs, nurses notes, lab test result(s), and as a result, I will cp discharge patient. 13:10 Counseling: I had a detailed discussion with the patient and/or guardian regarding: the cp historical points, exam findings, and any diagnostic results supporting the discharge/admit diagnosis, lab results, the need for outpatient follow up, an OB/Gyne specialist. 03/13 12:12 Order name: Quantitative Hcg; Complete Time: 13:07 cp Administered Medications: No medications were administered Disposition: 15:55 Co-signature as Attending Physician, Fransisco Keyes MD. ma2 Disposition: 03/13/20 13:12 Discharged to Home. Impression: related conditions, unspecified, first trimester. - Condition is Stable. - Discharge Instructions: Abdominal Pain During , Threatened Miscarriage, Pelvic Rest. - Prescriptions for Vitamin 27- 0.8 mg Oral Tablet - take 1 tablet by ORAL route once daily; 30 tablet. - Medication Reconciliation Form, Thank You Letter, Antibiotic Education, Prescription Opioid Use form. - Follow up: Private Physician; When: 1 week; Reason: Recheck today's complaints. - Problem is an ongoing problem. - Symptoms have improved. Signatures: Dispatcher [employer] Cathie Walker RN RN iw Supa Keita PA PA cp Alzahri, Mohammad, MD MD ma2 Corrections: (The following items were deleted from the chart) 13:28 13:12 03/13/2020 13:12 Discharged to Home. Impression: related conditions, iw unspecified, first trimester. Condition is Stable. Forms are Medication Reconciliation Form, Thank You Letter, Antibiotic Education, Prescription Opioid Use. Follow up: Private Physician; When: 1 week; Reason: Recheck today's complaints. Problem is an ongoing problem. Symptoms have improved. cp
--- NOTE | 2020-03-13 13:26 | ER ---
Nurse's Notes [facility] Name: Belinda Restrepo Age: 29 yrs Sex: Female : 1990 Arrival Date: 03/13/2020 Time: 10:11 Bed 11 Private MD: Diagnosis: related conditions, unspecified, first trimester Presentation: 03/13 10:59 Chief complaint: Patient states: is approx 6 weeks and 1 day , was told she iw needed an US and an HCG check , was seen here two days ago, is having mild cramping at night and some discharge. Coronavirus screen: At this time, the client does not indicate any symptoms associated with coronavirus-19. Ebola Screen: Patient negative for fever greater than or equal to 101.5 degrees Fahrenheit, and additional compatible Ebola Virus Disease symptoms Patient denies exposure to infectious person. Patient denies travel to an Ebola-affected area in the 21 days before illness onset. No symptoms or risks identified at this time. Initial Sepsis Screen: Does the patient meet any 2 criteria? No. Patient's initial sepsis screen is negative. Does the patient have a suspected source of infection? No. Patient's initial sepsis screen is negative. Risk Assessment: Do you want to hurt yourself or someone else? Patient reports no desire to harm self or others. Onset of symptoms was March 13, 2020. 10:59 Method Of Arrival: Ambulatory iw 10:59 Acuity: JULIO 4 iw Historical: - Allergies: 11:02 No Known Allergies; iw - Home Meds: 11:02 oral oral daily [Active]; iw - PMHx: 11:02 PCOS; iw - PSHx: 11:02 ; iw - Immunization history:: Adult Immunizations Adult Immunizations not up to date. - Social history:: Smoking status: Patient denies any tobacco usage or history of. Screenin:21 Abuse screen: Denies threats or abuse. Denies injuries from another. Nutritional iw screening: No deficits noted. Tuberculosis screening: No symptoms or risk factors identified. Fall Risk None identified. Assessment: 12:21 General: Appears in no apparent distress. Behavior is calm, cooperative. Pain: Denies iw pain. Neuro: Level of Consciousness is awake, alert, obeys commands, Oriented to person, place, time, situation. : Denies vaginal bleeding. Vital Signs: 10:59 BP 129 / 90; Pulse 71; Resp 16; Temp 98.5(O); Pulse Ox 100% on R/A; Weight 74.84 kg; iw Height 5 ft. 5 in. (165.10 cm); 10:59 Body Mass Index 27.46 (74.84 kg, 165.10 cm) iw ED Course: 10:11 Patient arrived in ED. as 11:01 Triage completed. iw 11:01 Arm band placed on. iw 12:20 Supa Keita PA is PHCP. cp 12:20 Fransisco Keyes MD is Attending Physician. cp 12:21 Cathie Conroy RN is Primary Nurse. iw 12:21 by az, sent to lab. iw Administered Medications: No medications were administered Outcome: 13:12 Discharge ordered by . cp 13:28 Patient left the ED. iw Signatures: Julissa Craig as Cathie Conroy, RN RN iw Supa Keita PA PA cp Corrections: (The following items were deleted from the chart) 11:38 10:59 Acuity: JULIO 3 iw iw
[2020-03-13 13:32] VITALS: BP 129/90; TEMP 98.5; O2SAT 100
== END 2020-03-13 13:28 | disposition home or self-care (01) ==
LOC: ER 10:06
DX: Z36.2 Encounter for other antenatal screening follow-up (principal)
CPT/HCPCS: 36415; 84702; 99282

== ENCOUNTER 2020-05-30 15:39 | Emergency (ER) | payer OTHER ==
--- OUTSIDE RECORDS SUMMARY | 2020-05-30 15:41 | XMS REPORT | Continuity of Care Document ---
:1990 Author Organization [facility] t Address [address] [place] [address] Care Team Providers Name Role Phone Delgado Petty Main Attending Clinician Unavailable Chacorta HERNANDEZ Attending Clinician Sandy Mendez Attending Clinician Kelsea Jordan Attending Clinician Doctor Unassigned, Name Attending Clinician Unavailable Lani Glass RN Attending Clinician Unavailable Payers Payer Name Policy Type Policy Number Effective Date Expiration Date S ource Problems This patient has no known problems. Allergies, Adverse Reactions, Alerts Allergy Allergy Status Severity Reaction(s) Onset Inactive Treating Comm ents Source Name Type Date Date Clinician No Known DA Active U 2014-02 [facility] Allergie 04-04 Jose [facility] 00[facility] Medications This patient has no known medications. Procedures This patient has no known procedures. Encounters Start End Encounter Admission Attending Care Care Encounter Source Date/Time Date/Time Type Type Clinicians Facility Department ID 2020-05-29 2020-05-29 Bowling [employer] Patcher Sheila Petty [facility] 1.2.840.114 [id number] 15:45:40 16:00:40 Visit Lab Main [place] [id number] [place] [id number] Profgreg [id number] [address] 2020-05-10 2020-05-10 Patient Divya [facility] [id number] 00:00:00 00:00:00 Secure Msg [place] [id number] Pediatric [id number] Clinic [id number] 2020-04-09 2020-04-09 Bowling Ball Patcher Sheila Petty [facility] 1.2.840.114 [id number] 11:45:18 12:00:18 Visit Lab Main [place] [id number] [place] [id number] Professio [id number] [address] 2020-04-06 2020-04-06 Patient Divya Whatley [place] 1.2.840.114 [id number] 00:00:00 00:00:00 Secure Msg [place] [id number] Pediatric [id number] Clinic [id number] 2020-04-06 2020-04-06 Patient Divya [facility] [id number] 00:00:00 00:00:00 Secure Msg [place] [id number] Pediatric [id number] Clinic [id number] 2020-04-05 2020-04-05 Emergency Tammie [facility] 1.2.840.114 [id number] 18:55:00 22:13:00 Alf Littlejohn [id number] [place] [id number] [place] [id number] 2020-03-28 2020-03-28 Emergency Heavenly Peng [facility] 1.2.840.114 [id number] 00:21:00 03:25:00 Kelsea Littlejohn [id number] [place] [id number] [place] [id number] 2020-03-28 2020-03-28 Orders Doctor TROY 1.2.840.114 [id number] 00:00:00 00:00:00 Only Unassigned, EILEEN [id number] [place] [facility] [id number] [id number] [facility] 2020-03-27 2020-03-27 Nurse Lani SIMMONS 1.2.840.114 [id number] 00:00:00 00:00:00 Triage EILEEN Glass [id number] [facility] [id number] [id number] 2020-03-27 2020-03-27 Orders Doctor TROY 1.2.840.114 [id number] 00:00:00 00:00:00 Only Unassigned, EILEEN [id number] [facility] [id number] 2020-03-17 2020-03-17 Bowling Ball Patcher Sheila Petty [facility] 1.2.840.114 [id number] 07:57:00 08:12:00 Visit Lab Main [place] [id number] [place] [id number] Professio [id number] nal [address] 2020-03-17 2020-03-17 Orders Doctor TROY 1.2.840.114 [id number] 00:00:00 00:00:00 Only Unassigned, EILEEN [id number] [facility] [id number] 2020-03-15 2020-03-15 Bowling Ball Patcher Sheila Petty [facility] 1.2.840.114 [id number] 10:18:57 10:33:57 Visit Lab Main [place] [id number] [place] [id number] Professio [id number] [facility] [address] [facility] Results This patient has no known results.
--- NOTE | 2020-05-30 16:07 | ER ---
Nurse's Notes [facility] Name: Belinda Restrepo Age: 29 yrs Sex: Female : 1990 Arrival Date: 05/30/2020 Time: 15:40 Bed Waiting Private MD: Diagnosis: ED Course: 05/30 15:40 Patient arrived in ED. am2 16:06 Patient states she was going to see her OB MD at [facility] instead of waiting to be seen in 1 the ED. Administered Medications: No medications were administered Outcome: 16:06 Patient left the ED. ll1 Signatures: Luz Maria Bedolla am2 Mabel Mata, RN RN 1
== END 2020-05-30 16:06 | disposition left against medical advice (07) ==
LOC: ER 15:39
DX: Z02.9 Encounter for administrative examinations, unspecified (principal)